=== PATIENT | female | born 1950 | race Caucasian/White ===

== ENCOUNTER 2017-02-25 19:18 | Inpatient (IN) | payer MEDICARE, OTHER ==
--- NOTE | ~2017-02-25 | TOC ---
Unit #: [id number] #: [id number] Patient: PIPE MC [id number] [address] [place], [place] [address] [id number] I MR#: [id number] NAME: PIPE MC ROOM: 316 Age: 67 Sex: F Admission Date: 02/25/2017 : 1950 Attending Physician: Evan Zimmer M.D. Primary Care Physician: Stefan Brambila M.D. TRANSFER OF CARE SUMMARY DISCHARGE DIAGNOSES 1. Irqlc-dx-jhxdsmx hypoxic and hypercapnic respiratory failure. 2. Dbwlj-vk-vbhmcjw diastolic heart failure. 3. Immobility. 4. Oral thrush. 5. Toxic-metabolic encephalopathy. 6. Chronic pain, managed on narcotics. 7. Hypertension. 8. Type 2 diabetes. HOSPITAL COURSE The patient is a 67-year-old female who presents to [facility] emergency department with some acute kidney injury and altered mental status. She was initially thought to possibly have a urinary tract infection however cultures were negative. Ultimately the patient required transfer to the ICU because of worsening respiratory failure. It was felt that this was brought about due to the patient's acute kidney injury and narcotic use. The patient was managed on BiPAP for her respiratory failure and with time and resolution of her acute kidney injury her mental status did return to baseline. Once the patient was no longer requiring BiPAP, she was initially to be transferred from the ICU but she demonstrated significant difficulty tolerating a diet. Even the smallest sips of water would result in significant nausea and vomiting. As a result, the patient was maintained on IV fluids. Over the course of the hospitalization it was felt that the patient was also suffering from cibdj-is-rqyqroj diastolic heart failure and aggressive diuresis was needed. At this time the patient has diuresed 5 L in the past 48 hours and is having much less trouble breathing. Regarding the patient's pain, she is on significantly smaller doses of pain medication than she was as an outpatient. She had been taking MS Contin 60 mg p.o. b.i.d. and 15 mg of instant release morphine as needed daily but has maintained herself only on 15 mg of instant release morphine t.i.d. as needed here. At this time the patient's respiratory status continues to improve. She is to be evaluated by PT and OT for possible rehab placement. Unit #: [id number] #: [id number] Patient: PIPE MC Dictated by... Barrie Albright/temo TD: 03/08/2017 15:06 JOB #: [id number] TRANSFER OF CARE SUMMARY Page 1 of 1 X Evan Zimmer MD X TRANSFER OF CARE SUMMARY
--- NOTE | ~2017-02-25 | CR72 ---
[facility] A Service of [facility] & [facility] RADIOLOGY TEXT RESULTS PATIENT: PIPE MC LOCATION: [address] : [birth year] UNIT #: [id number] AGE: [address]: Evan Zimmer MD SEX: F ORDER DR: [id number] [facility] [address] [facility]. [place], [place] [address] [id number] I MR#: [id number] Acc #: [id number] NAME: PIPE MC : 1950 SEX: F STUDY DATE/TIME: 03/03/2017 4:31 UNIT: [facility] ROOM: [facility] STUDY DESCRIPTION: CR Chest Single View Portable Attending Physician: Evan Zimmer M.D. Ordering Physician: Alvaro Cordova Primary Care Physician: Stefan Brambila M.D. MEDICAL IMAGING REPORT This report is preliminary unless electronic signature is present EXAM Portable chest INDICATIONS Shortness of air and fluid overload. PROCEDURE Frontal view chest. COMPARISON 02/25/2017 FINDINGS Stable cardiomegaly. No new dense consolidation. No pneumothorax. Central vascular congestion slightly increased. IMPRESSION Slightly increased central pulmonary vascular congestion. Otherwise stable. Dictated by... Eduard Buckley M.D. THIS IS AN ELECTRONICALLY VERIFIED REPORT Eduard Buckley M.D. at 03/03/2017 10:14 PM MELQUIADES/yuly TD: 03/03/2017 06:27 JOB #: [id number] MEDICAL IMAGING REPORT Page 1 of 1 COPY
--- NOTE | ~2017-02-25 | US139 ---
[facility] A Service of [facility] & [facility] / [facility] RADIOLOGY TEXT RESULTS PATIENT: PIPE MC LOCATION: [facility] 316[address]01 : [birth year] UNIT #: [id number] AGE: [address]: Evan Zimmer MD SEX: F ORDER DR: [id number] [facility] [address] [facility] [place] [facility]. [place], [place] [address] [id number] I MR#: [id number] Acc #: [id number] NAME: PIPE MC : 1950 SEX: F STUDY DATE/TIME: 03/06/2017 17:46 UNIT: [facility] ROOM: [facility] STUDY DESCRIPTION: US UE Veins Complete Jason Stdy Attending Physician: Evan Zimmer M.D. Ordering Physician: Bigg Cordova M.D. Primary Care Physician: Stefan Brambila M.D. MEDICAL IMAGING REPORT This report is preliminary unless electronic signature is present EXAM Bilateral upper extremity duplex venous ultrasound INDICATIONS Bilateral upper extremity edema over the last day. TECHNIQUE Escamilla-scale color Doppler and spectral Doppler waveform imaging of the deep venous structures of the upper extremities was performed. No comparisons. FINDINGS All the evaluated deep venous structures are patent and compressible (where possible) and there is no evidence of DVT. A right upper extremity PICC line is noted. IMPRESSION No evidence of DVT Dictated by... Chase Sawant M.D. THIS IS AN ELECTRONICALLY VERIFIED REPORT Chase Sawant M.D. at 03/09/2017 8:01 AM EVA/mino TD: 03/07/2017 01:27 JOB #: [id number] MEDICAL IMAGING REPORT Page 1 of 1 COPY
--- NOTE | ~2017-02-25 | CR72 ---
[facility] A Service of [facility] & [facility] RADIOLOGY TEXT RESULTS PATIENT: PIPE MC LOCATION: [facility] : 52 UNIT #: [id number] AGE: [address]: Alexy Boswell MD SEX: F ORDER DR: [id number] [facility] [address] [place], [place] [address] [id number] E MR#: [id number] Acc #: [id number] NAME: PIPE MC : 1950 SEX: F STUDY DATE/TIME: 02/25/2017 19:17 UNIT: [facility] ROOM: STUDY DESCRIPTION: CR Chest Single View Portable Attending Physician: Alexy Boswell M.D. Ordering Physician: Alexy Boswell M.D. Primary Care Physician: Stefan Brambila M.D. MEDICAL IMAGING REPORT This report is preliminary unless electronic signature is present EXAM Portable chest. DATE OF EXAM 02/25/2017 HISTORY Shortness of air and hypertension, and weakness for 1 month. FINDINGS Moderate cardiac enlargement. Pulmonary vascularity is normal. No airspace infiltrates or effusions. IMPRESSION 1. Cardiac enlargement. 2. Lungs are clear. Dictated by... Danilo Farfan M.D. THIS IS AN ELECTRONICALLY VERIFIED REPORT Danilo Farfan M.D. at 02/25/2017 11:28 PM DUANE/palmer TD: 02/25/2017 20:44 JOB #: [id number] MEDICAL IMAGING REPORT Page 1 of 1 COPY
--- NOTE | ~2017-02-25 | OR ---
Unit #: [id number] #: [id number] Patient: PIPE MC [id number] [address] [place], [place] [address] [id number] I MR#: [id number] NAME: PIPE MC ROOM: [facility] Date of Procedure: 03/03/2017 Admission Date: 02/25/2017 Surgeon: Kenneth Hernandez M.D. : 1950 Attending Physician: Evan Zimmer M.D. Primary Care Physician: Stefan Brambila M.D. OPERATIVE REPORT PRIMARY CARE PHYSICIAN Stefan Brambila M.D. PREOPERATIVE DIAGNOSES Nausea and vomiting. The patient is currently admitted in ICU because of hypoxemic respiratory failure. PROCEDURE PERFORMED Upper gastrointestinal endoscopy. POSTOPERATIVE DIAGNOSES 1. Distal erosive grade 3 esophagitis. 2. Distal esophageal mucosal ring, the latter was felt to be nonobstructing. 3. Rest of the examination up to third part of duodenum was normal. RECOMMENDATIONS 1. Pantoprazole 40 mg p.o. b.i.d. 2. Resume diet as tolerated. SEDATION USED Procedural sedation. DESCRIPTION OF PROCEDURE Following detailed explanation of potential risks and complications of an upper endoscopy, namely perforation, bleeding, and complication related to sedation, the patient was laid in the left lateral decubitus position. The procedure was done in intensive care unit at the patient's bedside. Lubricated tip of the Olympus video upper endoscope was passed through the bite block into the proximal esophagus under direct vision. The entire esophageal mucosa was examined and the patient was noted to have distal confluent erosive esophagitis along with early stricture. The latter was felt to be wide open, not requiring dilation. The scope was then advanced into the gastric cavity and the latter was insufflated. Mucosa of the fundus, body, and antrum was examined and appeared unremarkable. Pylorus was intubated with visualization of the normal duodenal bulb and second and third part of the duodenum. Upon withdrawal and retroflexion, the incisura, cardia, and greater curve were examined and no additional findings noted. The scope was withdrawn into the distal esophagus. The entire esophageal mucosa was examined all the way up to pharynx and no additional findings noted. The patient tolerated the procedure without any postprocedural complication. Unit #: [id number] #: [id number] Patient: PIPE MC Dictated by... Barrie Hand/dalila TD: 03/08/2017 03:35 JOB #: [id number] CC: Barrie Mar M.D. OPERATIVE REPORT Page 1 of 1 X Kenneth Hernandez MD X PROCEDURE OPERATIVE NOTE
--- NOTE | ~2017-02-25 | DS ---
Unit #: [id number] #: [id number] Patient: PIPE MC [id number] [address] [place], [place] [address] [id number] I MR#: [id number] NAME: PIPE MC ROOM: 316 Age: 67 Sex: F Admission Date: 02/25/2017 : 1950 Discharge Date: 03/11/2017 Attending Physician: Yaw Lovelace M.D. Primary Care Physician: Stefan Brambila M.D. DISCHARGE SUMMARY DISCHARGE DIAGNOSES 1. Acute on chronic hypoxic and hypercarbic respiratory failure. 2. Acute on chronic diastolic heart failure. 3. Immobility. 4. Oral thrush. 5. Toxic metabolic encephalopathy. 6. Type 2 diabetes mellitus. 7. Chronic pain. 8. Hypertension. HOSPITAL COURSE The patient is a 67-year-old female who presented to the emergency room with acute kidney injury and altered mental status. Please see the H and P and transfer of care note dictated on March 08 for further details. Since then, the patient has been waiting for placement. The patient was started on Magic Mouthwash for oral thrush, and that showed improvement. The patient's antibiotics were discontinued. The patient was transitioned to oral diuretics. The patient was weaned off of BiPAP, and she was on nasal cannula for oxygenation. The patient showed improvement with diuretics and bronchodilators. The patient is cleared for discharge by the consultants. CONSULTANTS Pulmonary with Dr. Cordova. PHYSICAL EXAMINATION GENERAL: The patient is lying in the bed, not in acute distress. VITALS: Temperature is 98.6, respirations 18, blood pressure 127/53, satting 96% on 2 liters of oxygen, pulse of 65. HEENT: Head is atraumatic, normocephalic. Pupils are equal, round and reactive to light and accommodation. Oral thrush has resolved. LUNGS: Decreased air entry at the bases and clear. No rhonchi. No wheezing. HEART: Regular rate and rhythm. Positive for murmur. ABDOMEN: Soft. Positive bowel sounds. Positive for obesity. EXTREMITIES: Positive for venous stasis. NEUROLOGIC: Alert, awake, oriented. DIAGNOSTIC STUDIES LAB DATA: Glucose 238, BUN 7, creatinine 0.7, sodium 138, potassium 3.7, chloride 91, bicarb 39, calcium 8.8. WBC 8.2, hemoglobin 10.8, hematocrit 32.5, platelets 219. Unit #: [id number] #: [id number] Patient: PIPE MC IMAGING: Chest x-ray shows significant improvement in reticular interstitial and alveolar disease changes compared to 03/06/2017 and 03/04/2017, thought to represent improving edema in the proper clinical context. Faint reticular interstitial infiltrates or edema remains within the bilateral lower lobes and the left midlung. Stable cardiomegaly. DISCHARGE MEDICATIONS 1. Prozac 40 mg daily. 2. Metformin 500 mg b.i.d. 3. Loperamide p.r.n. 4. Desenex topically b.i.d. 5. Benadryl for itching. 6. Norvasc 5 mg b.i.d. 7. Lopressor 25 mg b.i.d. 8. Colace p.r.n. 9. Lasix 40 mg p.o. daily. 10. Lipitor 20 mg at bedtime. 11. Clonidine p.r.n. systolic blood pressure more than 160. 12. Lisinopril 20 mg b.i.d. 13. Sliding scale low dose. 14. Morphine sulfate 15 mg for breakthrough pain. 15. Protonix 40 mg b.i.d. DISPOSITION/CONDITION The patient is (1) at rehab, probably (2) [place]. The patient is transferred to rehab in stable condition. FOLLOWUP Follow up with pulmonary in one month for evaluation of obstructive sleep apnea. Dictated by.Barrie Kuhn TD: 03/11/2017 14:19 JOB #: [id number] DISCHARGE SUMMARY Page 1 of 1 X X DISCHARGE SUMMARY
--- NOTE | ~2017-02-25 | EE ---
Unit #: [id number] #: [id number] Patient: PIPE MC [id number] [address] [address] [id number] I MR#: [id number] NAME: PIPE MC : 1950 SEX: F STUDY DATE/TIME: 02/26/2017 UNIT: [facility] ROOM: [facility] STUDY DESCRIPTION: EEG Attending Physician: Evan Zimmer M.D. Referring Physician: Evan Zimmer M.D. Primary Care Physician: Stefan Brambila M.D. NEURODIAGNOSTICS REPORT EXAM EEG REASON FOR THE STUDY 1. Likely toxic and metabolic encephalopathy. 2. Acute kidney injury. 3. UTI. 4. Hyperglycemia. 5. Confusional state, rule out epilepsy for the present problem or nonconvulsive seizures or status. EEG DESCRIPTION This is an inpatient, portable, digitally recorded multi-montage adult EEG with leads placed according to the International 10-20 System. Hyperventilation and photic stimulation was not done. This EEG shows diffuse background slowing. Most of the activity was 4 to 5 Hz. There was significant muscle and beta artifact. The patient never got good alpha activity. Nothing suggesting clearcut interictal discharges though some subtle C3/P3 slowing, which could be sleep related, was seen. The patient did have some spindles later on but nothing suggesting clearcut interictal discharges, clinical events or seizures. Reactivity was seen to some degree and some spindles were seen later on. IMPRESSION This is an abnormal EEG showing diffuse slowing which is indicative of encephalopathy. Nothing suggesting seizure or status. Clinical correlation is recommended. An EEG like this does not rule out epilepsy. Dictated by... Barrie Vincent/oscar TD: 02/27/2017 11:07 JOB #: [id number] Unit #: [id number] #: [id number] Patient: PIPE MC NEURODIAGNOSTICS REPORT Page 1 of 1 X Oneyda Hernandez MD NEURODIAGNOSTICS REPORT
--- NOTE | ~2017-02-25 | HP ---
Unit #: [id number] #: [id number] Patient: PIPE MC [id number] [address] [place], [place] [address] [id number] I MR#: [id number] NAME: PIPE MC ROOM: [facility] Age: 67 Sex: F Admission Date: 02/25/2017 : 1950 Attending Physician: Liberty Velasquez M.D. Primary Care Physician: Stefan Brambila M.D. HISTORY AND PHYSICAL ADDENDUM I did obtain an ABG: pH 7.28, pCO2 54, pO2 97, and O2 saturation 96.3% on 2 liters of oxygen. Because the patient is so tenuous, I will, instead, admit her to the intensive care unit. I will ask for BiPAP as well and repeat the ABG. The gas is a mixed metabolic/respiratory acidosis. Pulmonary will also be consulted. If not improving, will need to have nephrology consultation. Patient still is having significant myoclonic twitching. I suspect this is a combination from her hypercapnia, uremia, and her hypoglycemia. I will, however, give her some Keppra and obtain an EEG in the morning. The Keppra will be discontinued if the EEG looks okay. Critical care time spent evaluating this patient was 45 minutes. Dictated by Barrie Quintana/adelaida TD: 02/26/2017 05:07 JOB #: [id number] HISTORY AND PHYSICAL Page 1 of 1 X Liberty Velasquez MD HISTORY AND PHYSICAL
--- NOTE | ~2017-02-25 | US84 ---
[id number] [facility] [address] [facility]. [place], [place] [address] [id number] I MR#: [id number] Acc #: [id number] NAME: PIPE MC : 1950 SEX: F STUDY DATE/TIME: 03/04/2017 9:59 UNIT: [facility] ROOM: [facility] STUDY DESCRIPTION: US LE Veins Complete Jason Stdy Attending Physician: Evan Zimmer M.D. Ordering Physician: Liberty Velasquez M.D. Primary Care Physician: Stefan Brambila M.D. MEDICAL IMAGING REPORT This report is preliminary unless electronic signature is present EXAM Bilateral lower extremity venous duplex, 03/04/2017 HISTORY Bilateral lower extremity edema for 1 week, lymphedema in the left lower extremity, shortness of breath for 1 week, congestive heart failure and hypertension. Evaluate for pulmonary embolus. TECHNIQUE Venous ultrasound examination of both lower extremities was performed using grayscale, spectral Doppler and color flow Doppler imaging. FINDINGS The examination is negative. There is no evidence of deep venous thrombus from the groin to the lower calf bilaterally. Visualized greater saphenous veins are also patent. IMPRESSION Negative examination. No evidence of bilateral lower extremity deep venous thrombosis. Dictated by... Mario Escobedo M.D. THIS IS AN ELECTRONICALLY VERIFIED REPORT Mario Escobedo M.D. at 03/05/2017 8:07 AM SUSAN/karina TD: 03/04/2017 11:50 JOB #: [id number] MEDICAL IMAGING REPORT Page 1 of 1 COPY
--- NOTE | ~2017-02-25 | CO ---
Unit #: [id number] #: [id number] Patient: PIPE PIERSON [id number] [address] [place], [place] [address] [id number] I MR#: [id number] NAME: PIPE PIERSON ROOM: 316 Age: 67 Sex: F Admission Date: 02/25/2017 : 1950 Attending Physician: Evan Zimmer M.D. Primary Care Physician: Stefan Brambila M.D. Consultation Date: 03/02/2017 CONSULTATION REPORT PRIMARY CARE PHYSICIAN Stefan Brambila M.D. REASON FOR CONSULTATION Repeated nausea and vomiting. The patient is admitted with hypoxemic respiratory failure in the intensive care unit. HISTORY OF PRESENT ILLNESS Ms. Pierson is a 67-year-old white female. The patient is quite obese and is admitted with hypoxemic respiratory failure. She was found to have altered mental status in the form of increasing somnolence with myoclonic twitching and hypoxemia. At the same time, she was found to have acute kidney injury on admission. Since after admission, she has improved in terms of her oxygenation and renal function and mental status, but has not been able to accept anything by p.o. and has vomited repeatedly. PAST MEDICAL HISTORY Significant for history of hypertension; type 2 diabetes; peripheral neuropathy; hyperlipidemia; chronic back pain with history of spinal fusions in the past, she is on long-term MS Contin; chronic left leg lymphedema; depression; and history of urinary infections. PAST SURGICAL HISTORY Included back surgery, section, laparoscopic cholecystectomy, BTL, and T and A. MEDICATIONS At home included MS Contin, Lasix, Glucophage, lisinopril, ibuprofen, Imodium, hydralazine, Benadryl, Norvasc, potassium, Lantus insulin, and metoprolol. ALLERGIES She is allergic to sulfonamides, carbonic anhydrase inhibitors, thiazides, Lipitor, and Stelazine. FAMILY HISTORY Significant for coronary artery disease, diabetes, hypertension, and bone cancer. SOCIAL HISTORY The patient lives with her granddaughter and her . She never smoked. Does not drink alcohol. REVIEW OF SYSTEMS Unit #: [id number] #: [id number] Patient: PIPE PIERSON Detailed review of organ systems does not reveal any recent weight loss. No history of fever, chills, or rigors. No history of headache, seizures, chest pain, or syncope. No history of cough, expectoration, or hemoptysis. No history of dysuria, hematuria, or pyuria. No history of focal seizures or extremity weakness. No history of overt GI bleed. PHYSICAL EXAMINATION GENERAL: She appears alert and oriented. Apparently, she was quite confused when she came in. VITAL SIGNS: Indicate a temperature of 97.9, her pulse is 70 per minute and regular, respiratory rate is 24, and blood pressure is 135/59. She has morbid obesity and weighs 310 pounds. HEENT: She has mild pallor. There being no icterus, lymphadenopathy, and left leg lymphedema. CARDIOVASCULAR: Normal heart sounds. No murmurs on auscultation. LUNGS: Reveal normal breath sounds with diminished air entry bilaterally. ABDOMEN: Soft, obese, and nontender. Liver and spleen are not palpable. Bowel sounds are normal. DIAGNOSTIC STUDIES LABORATORY RESULTS: Shows a hemoglobin of 11.7, white count is 12.2, and platelets are 209. INR is 1.1. Serum chemistry shows a BUN and creatinine on admission of 88 and 3.2, this has now normalized and she does have an albumin of 3.0. LFTs including bilirubin, transaminases, and alkaline phosphatase are all normal. BNP is 210. TSH is 1.51 and normal. CLINICAL IMPRESSION The patient has repeated nausea and vomiting. There is a reason for her to be vomiting in view of multiple medical issues on presentation, but since these have resolved, repeated nausea and vomiting might indicate an intrinsic mucosal disease of the gastric outflow tract such as an ulcer disease; therefore, an upper endoscopy is warranted and will be scheduled for tomorrow. Incidentally, the patient says she wants to eat and is quite hungry; therefore, let her have regular diet as tolerated today. Thank you very much for asking me to this pleasant woman. I appreciate the consult. Dictated byBarrie Avalos/dalila TD: 03/08/2017 14:12 JOB #: [id number] CONSULTATION REPORT Page 1 of 1 X Kenneth Hernandez MD CONSULTATION REPORT
--- NOTE | ~2017-02-25 | A ---
[facility] Nutrition Therapy DATE: 03/02/17 Patient: PIPE MC Physician: LIBRADO Address: [address] [facility] Room/Bed: [address], Zip: [place] [address] Admit Date: 02/25/17 Date of : [birth year] Height: 5 2 Weight: 306 139 NUTRITIONAL ASSESSMENT: REASON: ICU LOS 67 yo female admitted for AMS, lethargy, RAMSES d/t dehydration PMH: H/o CHF, HTN, DM, chronic pain, HLD, cholecystectomy Anthropometrics: Ht: 62" Wt: 139 kg BMI: 56.0 Labs: Gluc 166 Accuchecks 150-170 Meds: Protonix, zofran, lopressor, lipitor, loperamide, NaCl I/O & Bowel function: 3564/915, last BM 03/01 Skin Integrity: Red/ purple bruising to BUE/ forearms Redness/ rash to breast and abdominal folds Redness to groin Edema: Chronic lymph edema left leg Diet: Clear liquids Assessment: Chart reviewed, events noted. Pt has been NPO or on clear liquid diet since admission. Pt was briefly placed on a consistent carbohydrate diet, which was changed to clear liquids that same day. Mild pancreatitis reported by RN. RD spoke with the pt and family members at bedside. Pt had poor intake for about 3 days [employer]. Pt reports that she has been tolerating clear liquids on and off, sometimes she can keep them down, and other times she vomits. RD explained the importance of a low fat diet once the pt's diet advances. Pt and family voiced understanding. Pt is agreeable to Ensure clear with meals while she is on a clear liquid diet. Dx: Inadequate oral intake RT Dx, decreased appetite AEB pt vomiting with intake of clear liquids, poor intake reported. Intervention: 1. Clear liquid diet 2. Advance as tolerated to CC/ low fat diet 3. Ensure clear TID Monitoring, Evaluation and Goals: 1. Oral intake; tolerate >50-75% meals and supplements [facility] Nutrition Therapy DATE: 03/02/17 Patient: PIPE MC Physician: LIBRADO Address: [address] [facility] Room/Bed: [address], Zip: [place] [address] Admit Date: 02/25/17 Date of : [birth year] Height: 5 2 Weight: 306 139 2. Labs; WNL: glucose 3. Weight; prevent unintentional weight loss, promote gradual weight loss once medically feasible 4. Skin; prevent skin breakdown Recommendations: 1. Continue clear liquid diet as tolerated. 2. Ensure clear (mixed maldonado) TID for supplemental nutrition while the pt remains on a clear liquid diet. 3. Once medically feasible, advance the pt to a low fat/ consistent carbohydrate diet as tolerated. Pt is at moderate nutritional risk. RD will follow hospital course. Respectfully, NIKITA JARAMILLO RD, LD [employer] [facility] cc: client file
--- NOTE | ~2017-02-25 | CR72 ---
[facility] A Service of [facility] RADIOLOGY TEXT RESULTS PATIENT: PIPE MC LOCATION: [place] [address] : [birth year] UNIT #: [id number] AGE: [address]: Evan Zimmer MD SEX: F ORDER DR: [id number] [facility] [address] [facility] [place], [place] [address] [id number] I MR#: [id number] #: [id number] NAME: PIPE MC : 1950 SEX: F STUDY DATE/TIME: 03/04/2017 1:57 UNIT: [facility] ROOM: [facility] STUDY DESCRIPTION: CR Chest Single View Portable Attending Physician: Evan Zimmer M.D. Ordering Physician: Liberty Velasquez M.D. Primary Care Physician: Stefan Brambila M.D. MEDICAL IMAGING REPORT This report is preliminary unless electronic signature is present EXAM Portable chest INDICATIONS Chest pain and shortness of air tonight. PROCEDURE Frontal view chest. COMPARISON 03/03/2017 FINDINGS Stable cardiomegaly and central pulmonary vascular prominence. No new dense consolidation, pleural fluid or pneumothorax. IMPRESSION Stable chest. Dictated by... Eduard Buckley M.D. THIS IS AN ELECTRONICALLY VERIFIED REPORT Eduard Buckley M.D. at 03/04/2017 10:24 PM EED/psc TD: 03/04/2017 04:05 JOB #: [id number] MEDICAL IMAGING REPORT Page 1 of 1 COPY
--- NOTE | ~2017-02-25 | CO ---
Unit #: [id number] #: [id number] Patient: PIPE PIERSON [id number] [address] [place], [place] [address] [id number] I MR#: [id number] NAME: IPPE PIERSON [facility]OM: [facility] Age: 67 Sex: F Admission Date: 02/25/2017 : 1950 Attending Physician: Evan Zimmer M.D. Primary Care Physician: Stefan Brambila M.D. CONSULTATION REPORT Ms. Pierson is a 67-year-old female who was admitted with altered mental status. She has a history of hypertension, diabetes mellitus, chronic pain, history of urinary tract infections. History is obtained from the medical record. Apparently over the last three days she had been taking very little orally and had decreased urine output. She became confused with a low grade fever. Over the past 24 hours she started twitching. She was brought to the emergency room. Vital signs were recorded as O2 sat of 99% on 3 L. Blood pressure was 149/47, respiratory rate was 14, pulse was 79, temperature was 98.1. She received 1 L of normal saline bolus, 1 g of Rocephin, 1000 mg of Keppra and an amp of D50. She was noted to have a blood sugar of 54. She was note to have some myoclonus. An arterial blood gas was done which revealed a pH of 2.77, pCO2 of 53.9, pO2 of 97 on 2 L. She has subsequently been placed on BiPAP 12/6 with a rate of 18, pH of 7.26, pCO2 of 54, pO2 of 114. Other lab work - creatinine was 3.2 on admission, 2.5 now. Glucose currently is 216, sodium 132. CO2 was recorded at 25. Chest x-ray showed cardiomegaly, no acute infiltrate. White blood cell count was 12,400, hematocrit 35.1, platelet count normal. Urinalysis did reveal white blood cells. Culture is pending. PAST MEDICAL HISTORY 1. History of acute kidney injury and urinary tract infection in July 2016. 2. History of hypertension. 3. Adult onset diabetes mellitus with peripheral neuropathy. 4. Hyperlipidemia. 5. Chronic back pain, status post fusion, followed with Dr. Agarwal in pain clinic, on MS-Contin. 6. History of chronic left leg lymphedema. 7. History of depression. SURGERY 1. Bilateral tubal ligation. 2. Tonsillectomy/adenoidectomy. 3. Lap jean paul. 4. . 5. Multiple back surgeries. ALLERGIES Stelazine, Dyazide, sulfa, carbonic and hydrase inhibitors, thiazides, Lipitor, hydrochlorothiazide, triamterene. HOME MEDICATIONS 1. MS-Contin. Unit #: [id number] #: [id number] Patient: PIPE PIERSON 2. Lasix. 3. Glucophage. 4. Lisinopril. 5. Ibuprofen. 6. Imodium. 7. Hydralazine. 8. Benadryl. 9. Norvasc. 10. Potassium. 11. Lantus. 12. Metoprolol. FAMILY HISTORY Hypertension, diabetes, coronary artery disease, bone cancer. SOCIAL HISTORY Lives with and granddaughter. Lifelong nonsmoker. No alcohol or illicit drugs. REVIEW OF SYSTEMS Not possible. Patient currently on BiPAP, getting an EEG. PHYSICAL EXAMINATION VITAL SIGNS: Blood pressure is 126/51, pulse is 89, respiratory rate is 23, temperature 98.1. HEENT: Normocephalic, atraumatic. Pupils equal, round, reactive. Sclerae nonicteric. Nasal passages, oral cavity not visualized due to full face mask. NECK: Supple. Trachea midline. Morbidly obese female. LUNGS: Reveal some scattered rhonchi and mild wheeze. CARDIAC: Regular rate and rhythm. Could not appreciate murmur, rub or gallop. ABDOMEN: Protuberant, nontender. Bowel sounds present. EXTREMITIES: Lymphedema on the left. Cobblestoning. Trace edema right. NEUROLOGICAL: Does follow commands, having myoclonic jerks. DIAGNOSTIC STUDIES LABORATORY: Laboratory studies are as noted. IMPRESSION 1. Altered mental status. 2. Myoclonus. 3. Acute respiratory acidosis. 4. Acute kidney injury. 5. Morbid obesity with probable obstructive sleep apnea. 6. Chronic pain, on narcotics. 7. Possible urinary tract infection. RECOMMENDATIONS Wound hold all pain medications. Will support on BiPAP, adjust to maintain better ventilation and followup arterial blood gases. She does have some wheezing today so will initiate bronchodilator therapy. Hydration for acute kidney injury. Hold lisinopril and nonsteroidals. Agree with treating for possible urinary tract infection. Await culture results. Further results pending this. Addendum - CT scan of the head showed nothing acute. Unit #: [id number] #: [id number] Patient: PIPE PIERSON Dictated by... Barrie Mccoy/oscar TD: 02/27/2017 06:58 JOB #: [id number] CONSULTATION REPORT Page 1 of 1 X Bigg Cordova MD X CONSULTATION REPORT
--- NOTE | ~2017-02-25 | CT4 ---
[facility] A Service of [facility] RADIOLOGY TEXT RESULTS PATIENT: PIPE MC LOCATION: [address] : [birth year] UNIT #: [id number] AGE: [address]: Evan Zimmer MD SEX: F ORDER DR: [id number] [facility] [address] [facility]. [place], [place] [address] [id number] I MR#: [id number] Acc #: [id number] NAME: PIPE MC : 1950 SEX: F STUDY DATE/TIME: 03/01/2017 19:48 UNIT: [facility] ROOM: [facility] STUDY DESCRIPTION: CT Abd and Pelv Wo Cont Attending Physician: Evan Zimmer M.D. Ordering Physician: Evan Zimmer M.D. Primary Care Physician: Stefan Brambila M.D. MEDICAL IMAGING REPORT This report is preliminary unless electronic signature is present EXAM CT abdomen and pelvis without contrast, 03/01/2017 INDICATIONS Persistent nausea, vomiting, and diarrhea for the past [address] of the abdomen and pelvis. This CT exam was performed with one or more of the following radiation dose reduction techniques: automatic exposure control, adjustment of mA and/or kV according to patient size, and iterative reconstruction. COMPARISON None. FINDINGS ABDOMEN WITHOUT CONTRAST: There are patchy opacities in both lung bases. The liver, spleen, kidneys, and adrenal glands show no definite acute abnormality. There is some haziness around the pancreas with obscuration of the fat planes around the pancreatic head. Previous cholecystectomy. No organized peripancreatic collection. Bowel loops nondilated. Appendix normal. 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 PELVIS WITHOUT CONTRAST: Mccracken catheter in the bladder. There is a small amount of fluid in the pelvis. No aggressive-appearing bone lesion. IMPRESSION 1. Haziness around the pancreas with obscuration of fat planes, that is most in keeping with mild acute pancreatitis. Correlate with [facility] A Service of [facility] RADIOLOGY TEXT RESULTS PATIENT: PIPE MC LOCATION: [facility] CICCU3-24 : [birth year] UNIT #: [id number] AGE: [address]: Evan Zimmer MD SEX: F ORDER DR: laboratory values. No evidence for organized peripancreatic fluid collection. 2. Patchy opacities in the lung bases could represent atelectasis or infiltrate. Dictated by... Eduard Buckley M.D. THIS IS AN ELECTRONICALLY VERIFIED REPORT Eduard Buckley M.D. at 03/02/2017 9:56 PM MELQUIADES/annia TD: 03/02/2017 03:45 JOB #: [id number] MEDICAL IMAGING REPORT Page 1 of 1 COPY
--- NOTE | ~2017-02-25 | HP ---
Unit #: [id number] #: [id number] Patient: PIPE MC [id number] [address] [place], [place] [address] [id number] I MR#: [id number] NAME: PIPE MC ROOM: 49[address] Age: 67 Sex: F Admission Date: 02/25/2017 : 1950 Attending Physician: Liberty Velasquez M.D. Primary Care Physician: Stefan Brambila M.D. HISTORY AND PHYSICAL CHIEF COMPLAINT Acute kidney injury, altered mental status, urinary tract infection, hypoglycemia. HISTORY This 67-year-old female with hypertension, AODM, chronic pain, is admitted for hypoglycemia, altered mental status, possible UTI, acute kidney injury. History is obtained from family. Over the past three days patient has been taking in very little p.o., with decreased urinary output. Became increasing confused with a low-grade temperature. Over the past 24 hours has been "twitching." She was brought to this emergency department tonight with stable vital signs. She is extremely somnolent on exam and has evidence of some myoclonic twitching. Her Accu-Chek as I am seeing her is 54. Labs are notable for acute kidney injury, possible UTI. Patient is also requiring oxygen. She presented similarly to the hospital 07/2016 for UTI and acute kidney injury. PAST MEDICAL HISTORY 1. Admission 07/2016 for acute kidney injury and urinary tract infection. 2. Hypertension. 3. AODM with peripheral neuropathy. 4. Hyperlipidemia. 5. Chronic back pain status post fusion, [place], [place] followed by Pain Management on MS Contin. 6. Chronic left leg lymphedema. 7. Depression. 8. BTL. 9. T and A. 10. Laparoscopic cholecystectomy. 11. C section. 12. Previous back surgeries. ALLERGIES Stelazine, Dyazide, sulfa, carbonic anhydrase inhibitors, thiazides, Lipitor, hydrochlorothiazide, triamterene. HOME MEDICATIONS 1. MS Contin 60 mg b.i.d. 2. Lasix 40 mg plus 20 mg 3. Glucophage 500 mg b.i.d. 4. Lisinopril 20 mg daily 5. Ibuprofen 200 mg two tablets q.6 hours as needed 6. Imodium p.r.n. Unit #: [id number] #: [id number] Patient: PIPE MC 7. Hydralazine 25 mg daily 8. Benadryl 25 mg q.6 hours as needed 9. Norvasc 5 mg b.i.d. 10. Potassium 10 mEq daily 11. Lantus 35 units subcu at bedtime 12. Metoprolol 12.5 mg b.i.d. FAMILY HISTORY Hypertension, diabetes mellitus, CAD and bone cancer. SOCIAL HISTORY The patient lives with her and granddaughter. Lifelong nonsmoker. Does not drink alcohol. REVIEW OF SYSTEMS Impossible to obtain as patient is confused and lethargic. PHYSICAL EXAMINATION GENERAL: Confused/lethargic, morbidly obese 67-year-old female who does have intermittent myoclonic twitching. VITAL SIGNS: Temperature 98.1, pulse 79, respirations 14, blood pressure 149/47, O2 saturation 99% on 3 L of oxygen. HEENT EXAMINATION: Eyes PERRLA. PHARYNX: Very poor dentition. Dry mucosal membranes. NECK: Supple without adenopathy or thyromegaly. CHEST: Diminished breath sounds but clear. CARDIAC: Normal S1, S2 without murmur. ABDOMEN: Bowel sounds are present. No hepatosplenomegaly, tenderness or masses. EXTREMITIES: Notable for left leg edema (which apparently is chronic) and erythema. NEUROLOGIC EXAM: Patient is somnolent but arousable. She is oriented to person. She has intermittent myoclonic twitching of her extremities. She is able to move all her extremities and follow commands. DIAGNOSTIC STUDIES ADMISSION LABORATORY: Hematocrit 35.4, white blood count 12.4, normal platelet count. Normal coags. SMA-12: BUN 88, creatinine 3.2 (up from BUN 10, creatinine 0.8 07/2016), sodium 134, alk phos 104. Lactic acid normal. Cardiac markers negative. URINALYSIS: 1+ leukocyte esterase with 10-25 white cells, although moderate squamous epithelial cells making this a somewhat poor specimen, 5-10 red cells noted. IMAGING 1. Chest x-ray: Cardiomegaly. 2. Head CT: No acute disease. Mild small vessel ischemic disease and atrophy noted. CARDIOLOGY: EKG - Normal sinus rhythm, rate 75. ASSESSMENT 1. Acute kidney injury secondary to dehydration and medications. 2. Adult-onset diabetes mellitus with hypoglycemia, current Accu-Chek is Unit #: [id number] #: [id number] Patient: PIPE MC. 3. Possible urinary tract infection. 4. Altered mental status likely related to toxic metabolic encephalopathy, which is multifactorial including medications, acute kidney injury, hypoglycemia. 5. Hypertension. 6. Chronic left leg edema. 7. Chronic low back pain on MS Contin. 8. Hyperlipidemia. 9. Myoclonic twitching secondary to hypoglycemia, uremia. However, will check an ABG to rule out hypercapnia. 10. Morbid obesity. PLANS 1. Aggressive IV fluids, will give dextrose with IV fluids. Patient did receive 1 amp of D50. 2. Obtain frequent Accu-Cheks and obtain a hemoglobin A1C along with thyroid function tests. 3. Empiric Rocephin pending cultures. 4. Obtain renal ultrasound. 5. Check venous Dopplers of the legs and start DVT prophylaxis with low-dose Lovenox. 6. Repeat labs in a few hours. 7. Discontinue ibuprofen and TOM inhibitor along with potassium. 8. Will hold MS Contin, metformin, insulin, Benadryl. 9. Further plans and consultants depending on above. 10. Obtain ABG. Dictated by Liberty Velasquez M.D. AML/psc TD: 02/26/2017 00:32 JOB #: [id number] CC: 2u HISTORY AND PHYSICAL Page 1 of 1 X Liberty Velasquez MD X HISTORY AND PHYSICAL
--- NOTE | ~2017-02-25 | US77 ---
[facility] A Service of [facility] RADIOLOGY TEXT RESULTS PATIENT: PIPE MC LOCATION: [facility] CICCU3-24 : [birth year] UNIT #: [id number] AGE: [address]: Evan Zimmer MD SEX: F ORDER DR: [id number] [facility] [address] [facility] [place] [facility]. [place], [place] [address] [id number] I MR#: [id number] #: [id number] NAME: PIPE MC : 1950 SEX: F STUDY DATE/TIME: 02/26/2017 19:24 [facility] STUDY DESCRIPTION: US Kidney Bilateral Complete Attending Physician: Evan Zimmer M.D. Ordering Physician: Liberty Velasquez M.D. Primary Care Physician: Stefan Brambila M.D. MEDICAL IMAGING REPORT This report is preliminary unless electronic signature is present EXAM Renal ultrasound bilateral, 02/26/2017 INDICATIONS Hypertension, diabetes, creatinine 2.5, BUN 83, GFR 19, clinical concern for obstruction. Acute renal injury. TECHNIQUE Sonographic imaging of the kidneys was performed bilaterally. Comparison study 08/26/2016. FINDINGS There is a limited sonographic window for evaluation of the kidneys. These were the best images possible according to the technologist. To the extent visualized, there is no hydronephrosis of either kidney or shadowing stone. Significant portions of both kidneys were obscured from view, however. The right kidney measures about 12 cm long-axis, and the left about 10.8 cm. The bladder is abnormal. There is a hyperechoic, polypoid appearing mass-like area of echogenicity extending anteriorly into the bladder lumen from the posterior bladder wall. Findings are suspicious for an underlying mass. Dimensions on ultrasound 2.5 x 2.0 cm. Correlate with any history of hematuria or risk factors for malignancy of the bladder. It is possible this could represent debris within the bladder. Direct visualization would be complementary along with urologic referral for further assessment. IMPRESSION 1. Limited sonographic window. No hydronephrosis or shadowing stone on either side. 2. Findings suspicious for a polypoid mass protruding into the bladder lumen from the posterior bladder wall measuring up to 2.5 x 2.0 cm. This could alternatively represent debris within the bladder. Direct visualization would be complementary. Correlation [facility] A Service of [facility] RADIOLOGY TEXT RESULTS PATIENT: PIPE MC LOCATION: [facility]3 CICCU3-24 : [birth year] UNIT #: [id number] AGE: [address]: Evan Zimmer MD SEX: F ORDER DR: with any history of hematuria recommended. Dictated by... Bhavesh Castaneda M.D. THIS IS AN ELECTRONICALLY VERIFIED REPORT Bhavesh Castaneda M.D. at 02/27/2017 5:26 AM ROSEMARIE/ade TD: 02/27/2017 04:20 JOB #: [id number] MEDICAL IMAGING REPORT Page 1 of 1 COPY
--- NOTE | ~2017-02-25 | BMI ---
[facility] Nutrition Therapy DATE: 02/27/17 Patient: PIPE MC Physician: LIBRADO Address: [address] Room/Bed: [address], Zip: [place] [address] Admit Date: 02/25/17 Date of : [birth year] Height: 5 2 Weight: 306 139 HIGH BMI NOTE: ANTHROPOMETRICS: HT: 62" WT: 139 KG BMI: 56.0 INTERVENTION: 1. CONSISTENT CARBOHYDRATE DIET RECOMMENDATIONS: 1. ADD HEART HEALTHY DIET IN ORDER TO PROMOTE GRADUAL WEIGHT LOSS. Respectfully, NIKITA JARAMILLO RD, LD [facility] cc: client file
--- NOTE | ~2017-02-25 | CT16 ---
[facility] A Service of [facility] RADIOLOGY TEXT RESULTS PATIENT: PIPE MC LOCATION: [address] : 51 UNIT #: [id number] AGE: [address]: Evan Zimmer MD SEX: F ORDER DR: [id number] [facility] [address] [place], [place] [address] [id number] I MR#: [id number] Acc #: [id number] NAME: PIPE MC : 1950 SEX: F STUDY DATE/TIME: 03/04/2017 13:04 UNIT: [facility] ROOM: [facility] STUDY DESCRIPTION: CT Angio Chest for PE Attending Physician: Evan Zimmer M.D. Ordering Physician: Liberty Velasquez M.D. Primary Care Physician: Stefan Brambila M.D. MEDICAL IMAGING REPORT This report is preliminary unless electronic signature is present EXAM CT angiography of chest for PE. DATE OF EXAM 03/04/2017 HISTORY Admitted 02/25/2017 hypoglycemia, confusion, acute kidney insufficiency, hypertension, diabetes, shortness of breast since February 25. TECHNIQUE CT chest performed for CT pulmonary angiography with intravenous administration of 80 mL Isovue-370. Three-dimensional reconstructions performed through the pulmonary arteries. NOTE: This CT exam was performed with one or more of the following radiation dose reduction techniques: automatic exposure control, adjustment of mA and/or kV according to patient size, and iterative reconstruction. COMPARISON No prior CTs of chest for comparison. FINDINGS Thyroid unremarkable. No axillary adenopathy. There are mildly enlarged mediastinal nodes. 1.1 cm short-axis subcarinal node. Azygo-esophageal recess node measuring about 1.6 cm in short axis. The heart is moderately enlarged. Mitral annular calcifications. Small left and moderate right pleural effusions. Small-volume ascites adjacent to the liver. No focal suspicious hepatic parenchymal abnormality. The patient is status post cholecystectomy. No biliary ductal dilatation. Spleen unremarkable. The visualized pancreas shows a decrease in the peripancreatic haziness seen on prior CT abdomen and pelvis 03/01/2017. There continues to be some haziness in the region of the pancreatic head. Appearance may reflect improving, but not yet resolved mild pancreatitis. Please correlate with STS. [facility] A Service of [facility] RADIOLOGY TEXT RESULTS PATIENT: PIPE MC LOCATION: CICCU2 CICCU2-02 : 51 UNIT #: [id number] AGE: [address]: Evan Zimmer MD SEX: F ORDER DR: laboratory data and clinical status. No peripancreatic fluid collection. The adrenal glands and upper renal poles are unremarkable. Fluid seen throughout the esophagus suggesting gastroesophageal reflux which may place the patient at increased risk for aspiration. There is marked gastric distension with fluid and air. Given the degree of distension, gastric decompression may be warranted. I see no gastric obstructing process. Visualized transverse colon unremarkable. Pulmonary parenchyma shows linear interstitial prominence bilaterally. Patchy airspace disease bilaterally more pronounced in the bilateral vyv-km-lieew lung zones with areas of confluent airspace disease in the bilateral lower lobes. Where this examination overlaps the CT abdomen and pelvis 03/19/2017, the extent of airspace disease is increased. Given the bilateral and roughly symmetric nature of the process, pleural effusions, interstitial and airspace components, severe pulmonary edema is favored. Certainly multifocal pneumonia could be considered. No suspicious nodule. The study is nondiagnostic for evaluation of potential pulmonary emboli due to timing of contrast bolus relative to image acquisition and extensive respiratory motion artifact. No pulmonary emboli seen in the main pulmonary artery, right or left main pulmonary arteries. Beyond these levels, technical limitations of the study render it nondiagnostic. If there is ongoing concern for pulmonary thromboembolic disease, repeat CT pulmonary angiogram would be recommended if the patient is a candidate for additional iodinated contrast material. The possibility of pulmonary emboli at the lobar and more distal levels is not excluded on basis of this examination. Ventilation-perfusion radionuclide lung scan may not yield diagnostic result due to the extensive interstitial airspace and pleural space findings. The main pulmonary artery is prominent at about 3.9 cm in diameter suggesting some degree of pulmonary arterial hypertension. The ascending aorta measures approximately 3.9 cm in diameter. Given there is extensive motion artifact. The great vessel origins are patent with flow demonstrated in the proximal vertebral and common carotid arteries. The descending thoracic aorta is normal in caliber. Celiac axis grossly patent. Visualized abdominal aorta is poorly opacified. It appears normal in overall caliber with prominent atherosclerotic arterial calcifications. The bony structures show no acute abnormality. There are degenerative changes in the spine. IMPRESSION 1. Due to timing of contrast bolus relative to image acquisition and extensive respiratory motion artifact, the study is nondiagnostic for evaluation of potential pulmonary emboli beyond the level of the main pulmonary arteries. No main, right or left main pulmonary artery emboli are suggested. Pulmonary arterial emboli at lobar and more distal levels could be obscured by a combination of limitations described above. If there is ongoing concern for pulmonary thromboembolic disease, and if the patient is a candidate for additional iodinated contrast material, repeat CT pulmonary angiogram [facility] A Service of [facility] RADIOLOGY TEXT RESULTS PATIENT: PIPE MC LOCATION: [address] : 51 UNIT #: [id number] AGE: [address]: Evan Zimmer MD SEX: F ORDER DR: could be considered. Given findings in the pleural space and lung parenchyma, ventilation-perfusion radionuclide lung scan is unlikely to be fully diagnostic. 2. Prominence of the main pulmonary artery measuring 3.9 cm in diameter, likely reflecting some degree of underlying pulmonary arterial hypertension. 3. Borderline aneurysmal dilatation of ascending aorta measuring 3.9 cm in diameter. There is no indication of dissection. The visualized aortic branch vessels appear grossly patent. 4. Moderate cardiac enlargement. Mitral annular calcifications noted. 5. Appearance of the lungs is abnormal. Extensive linear interstitial densities in the bilateral lungs. Extensive patchy airspace disease bilaterally and relatively symmetrically more pronounced in bilateral udh-oe-svjrl lung zones with areas of confluent airspace disease bilateral lower lung zones. Associated small left and moderate right pleural effusions. Overall appearance favors severe pulmonary edema with interstitial airspace and pleural space components. Multifocal bilateral pneumonia could be considered in the appropriate clinical setting. 6. There is marked gastric distension with air and fluid. No gastric obstructing process is clearly seen. Correlate clinically. Given the degree of distension, gastric decompression may be warranted. 7. Fluid seen throughout the esophagus. This suggests gastroesophageal reflux and may place the patient at significantly increased risk for aspiration. 8. Improved, but not yet resolved haziness and ill-defined tissue planes in the region of the pancreas. Findings suggest improving pancreatitis. There is no localized peripancreatic fluid collection. 9. Small volume ascites. 10. Status post cholecystectomy. 11. Mediastinal adenopathy as described above likely reactive in nature and related to pulmonary/pleural processes. Attention at followup recommended. Dictated by... Kike Lau M.D. THIS IS AN ELECTRONICALLY VERIFIED REPORT Kike Lau M.D. at 03/05/2017 5:36 PM KAYA/palmer TD: 03/04/2017 16:30 JOB #: [id number] MEDICAL IMAGING REPORT Page 1 of 1 COPY
--- NOTE | ~2017-02-25 | CT71 ---
[facility] A Service of [facility] [place] RADIOLOGY TEXT RESULTS PATIENT: PIPE MC LOCATION: CICCU3 CICCU3-24 : 51 UNIT #: [id number] AGE: [address]: Evan Zimmer MD SEX: F ORDER DR: [id number] [place] [id number] [facility]. [place], [place] [address] [id number] MR#: [id number] Acc #: [id number] NAME: PIPE MC : 1950 SEX: F STUDY DATE/TIME: 02/25/2017 21:59 UNIT: [facility] ROOM: STUDY DESCRIPTION: CT Head Wo Contrast Attending Physician: Alexy Boswell M.D. Ordering Physician: Alexy Boswell M.D. Primary Care Physician: Stefan Brambila M.D. MEDICAL IMAGING REPORT This report is preliminary unless electronic signature is present EXAM CT head without IV contrast COMPARISON August 25, 2016 INDICATIONS 67-year-old female with confusion, disorientation, lethargy and weakness for [address] exam was performed with one or more of the following radiation dose reduction techniques: Automatic exposure control, adjustment of mA and/or kV according to patient size, and iterative reconstruction. Cerumen is present in the right external ear canal. Mastoid air cells, middle ears and visualized paranasal sinuses are well aerated. Detailed evaluation on this exam is limited by patient motion. There are calcifications of the cavernous internal carotid arteries. There is diffuse osteopenia. No acute fractures or suspicious osseous lesions. There is mild cerebral volume loss. No abnormal extraaxial fluid collection or mass effect. No acute intracranial hemorrhage. There is stable periventricular white matter hypoattenuation within the frontal and parietal lobes consistent with chronic small vessel ischemic change. There is stable hypoattenuation in the region of the left lentiform nucleus, also consistent with chronic small vessel ischemic change. No convincing evidence of acute ischemia. IMPRESSION 1. Motion limited exam. No acute intracranial abnormality is seen. 2. Mild cerebral volume loss with mild chronic small vessel ischemic changes. [facility] A Service of [facility] [place] RADIOLOGY TEXT RESULTS PATIENT: PIPE MC LOCATION: [facility] CICCU3-24 : 51 UNIT #: [id number] AGE: [address]: Evan Zimmer MD SEX: F ORDER DR: Dictated by... Earl Lay M.D. THIS IS AN ELECTRONICALLY VERIFIED REPORT Earl Lay M.D. at 03/01/2017 10:02 PM JOHN/ade TD: 02/25/2017 23:44 JOB #: [id number] MEDICAL IMAGING REPORT Page 1 of 1 COPY
--- NOTE | ~2017-02-25 | US84 ---
[id number] [facility] [address] [place], [place] [address] [id number] I MR#: [id number] Acc #: [id number] NAME: PIPE MC : 1950 SEX: F STUDY DATE/TIME: 02/26/2017 19:39 UNIT: [facility] ROOM: [facility] STUDY DESCRIPTION: US LE Veins Complete Jason Stdy Attending Physician: Evan Zimmer M.D. Ordering Physician: Liberty Velasquez M.D. Primary Care Physician: Stefan Brambila M.D. MEDICAL IMAGING REPORT This report is preliminary unless electronic signature is present EXAM Bilateral lower extremity venous ultrasound HISTORY Shortness of air for 2 days. Left leg neuropathy. TECHNIQUE Venous ultrasound examination of both lower extremities was performed using grayscale, spectral Doppler and color flow Doppler imaging. FINDINGS The examination is negative. There is no evidence of deep venous thrombus from the groin to the lower calf bilaterally. Visualized greater saphenous veins are also patent. IMPRESSION Negative examination. No evidence of lower extremity deep venous thrombosis. Dictated by... Danilo Farfan M.D. THIS IS AN ELECTRONICALLY VERIFIED REPORT Danilo Farfan M.D. at 02/27/2017 2:57 PM DFL/psc TD: 02/27/2017 03:06 JOB #: [id number] MEDICAL IMAGING REPORT Page 1 of 1 COPY
--- NOTE | ~2017-02-25 | CR72 ---
[facility] A Service of [facility] RADIOLOGY TEXT RESULTS PATIENT: PIPE MC LOCATION: [facility] 316-01 : 51 UNIT #: [id number] AGE: [address]: HERBERTH LOVELACE MD SEX: F ORDER DR: [id number] [facility] [address] [place], [place] [address] [id number] I MR#: [id number] Acc #: [id number] NAME: PIPE MC : 1950 SEX: F STUDY DATE/TIME: 03/09/2017 6:26 [facility] ROOM: [facility] STUDY DESCRIPTION: CR Chest Single View Portable Attending Physician: Herberth Lovelace M.D. Ordering Physician: Bigg Cordova M.D. Primary Care Physician: Stefan Brambila M.D. MEDICAL IMAGING REPORT This report is preliminary unless electronic signature is present EXAM AP portable chest, 03/09/2017 at 06:26 HISTORY 67-year-old female shortness of breath, respiratory failure and fluid overload. Symptoms began 02/25/2017. Confusion and urinary tract infection. Additional history of hypertension and diabetes. COMPARISON AP portable chest 03/06/2017. CT chest PE protocol 03/04/2017. FINDINGS Low volume inspiration. Study is mildly attenuated by body habitus. The interstitial thickening seen in both lungs, left greater than right, on previous studies from 03/06/2017 and 03/04/2017 appears improved with faint residual reticular infiltrate in the left midlung and within the lung bases. No new dense consolidations are seen. No definite pleural effusion. Stable cardiac enlargement. Central pulmonary vasculature appears within normal limits. IMPRESSION 1. Significant improvement in reticular interstitial and alveolar disease changes compared to 03/06/2017 and 03/04/2017, thought to represent improving edema in the proper clinical context. Faint reticular interstitial infiltrates or edema remains within the bilateral lower lobes and the left midlung. 2. Stable cardiomegaly. Dictated by... Sheryl Kidd M.D. THIS IS AN ELECTRONICALLY VERIFIED REPORT Sheryl Kidd M.D. at 03/10/2017 8:33 AM [facility] A Service of [facility] RADIOLOGY TEXT RESULTS PATIENT: PIPE MC LOCATION: [facility] 316-01 : 51 UNIT #: [id number] AGE: [address]: HERBERTH LOVELACE MD SEX: F ORDER DR: JENNIFER/karina TD: 03/09/2017 10:10 JOB #: [id number] MEDICAL IMAGING REPORT Page 1 of 1 COPY
--- NOTE | ~2017-02-25 | CR72 ---
[facility] A Service of [facility] & [facility] RADIOLOGY TEXT RESULTS PATIENT: IPPE MC LOCATION: [facility] 316-01 : 51 UNIT #: [id number] AGE: [address]: Evan Zimmer MD SEX: F ORDER DR: [id number] [facility] [address] [place], [place] [address] [id number] I MR#: [id number] Acc #: [id number] NAME: PIPE MC : 1950 SEX: F STUDY DATE/TIME: 03/06/2017 4:29 UNIT: [facility] ROOM: [facility] STUDY DESCRIPTION: CR Chest Single View Portable Attending Physician: Evan Zimmer M.D. Ordering Physician: Bigg Cordova M.D. Primary Care Physician: Stefan Brambila M.D. MEDICAL IMAGING REPORT This report is preliminary unless electronic signature is present EXAM Portable chest INDICATION Shortness of air and chest pain today. PROCEDURE Frontal view chest COMPARISON 03/04/2017 FINDINGS Stable cardiomegaly. No new dense consolidation. No pneumothorax. IMPRESSION Stable. Dictated by... Eduard Buckley M.D. THIS IS AN ELECTRONICALLY VERIFIED REPORT Eduard Buckley M.D. at 03/09/2017 7:30 AM Geovanna TD: 03/06/2017 08:02 JOB #: [id number] MEDICAL IMAGING REPORT Page 1 of 1 COPY
--- NOTE | ~2017-02-25 | EKG ---
PATIENT: PIPE MC UNIT #: [id number] Ventricular Rate: 79 BPM Atrial Rate: 79 BPM P-R Interval: 138 ms QRS Duration: 92 ms Q-T Interval: 428 ms QTC Calculation(Bezet): 490 ms P [place]: 45 degrees Calculated R [place]: 17 degrees Calculated T [place]ati: -171 degrees Diagnosis Line: Normal sinus rhythm with sinus arrhythmia Diagnosis Line: Poor R wave progression questionable lead position Diagnosis Line: or body habitus Diagnosis Line: T wave abnormality, consider inferolateral Diagnosis Line: ischemia Diagnosis Line: Abnormal ECG Diagnosis Line: When compared with ECG of 25-FEB-2017 19:07, Diagnosis Line: T wave inversion now evident in Lateral leads Diagnosis Line: Confirmed by YUKI ROGERS MD ([id number]) on 03/04/2017 Diagnosis Line: 10:33:34 PM INTERPRETING MD: SUE RAMIREZ
--- NOTE | ~2017-02-25 | FU ---
[facility] Nutrition Therapy DATE: 03/06/17 Patient: PIPE MC Physician: LIBRADO Address: [address] Room/Bed: [address], Zip: [place] [id number] Admit Date: 02/25/17 Date of : [birth year] Height: 5 2 Weight: 324 147 NUTRITION MONITORING/FOLLOW-UP: Reason: PT SEEN FOR FOLLOW-UP DX: RAMSES, UTI, TME HYPOGLYCEMIA Anthropometrics: 5'2", WT: 324# (147 KG), BMI: 59.3 -ADMIT WEIGHT: 305# Labs: GLU: 174, CA+:8.3, A1c: 7.2 (02/26/17), K+:3.4 Meds: FUROSEMIDE, PROTONIX, ZOFRAN, LIPITOR, NACL I&O's: 2819/2342, 2 BMs NOTED Skin: CHRONIC LYMPHEDEMA NOTED (L) LEG; ABD/BUE GENERALIZED EDEMA; BILATERAL HANDS 2+ EDEMA; (R) PEDAL 2+ EDEMA; ABD FOLDS FUNGAL PROCESS Assessment: CHART REVIEWED AND EVENTS NOTED. PT SEEN FOR FOLLOW-UP. PT REPORTS APPETITE SLOWLY IMPROVING, NOTES N/V SLOWLY SUBSIDING. PT REPORTS TOLERATING LIQUID DIET TRAY THIS AM (NOTE: PT ATE 100% BREAKFAST TRAY). PT STATES SHE WANTS TO CONTINUE TO DRINK ENSURE CLEAR TID. THIS RD ENCOURAGED SLOW GRADUAL PO INTAKE, PT AGREED. PT REPORTED NO DIET QUESTIONS AT THIS TIME. RD TO CONTINUE TO FOLLOW. Dx: INADEQUATE ORAL INTAKE R/T DECREASED APPETITE AEB PT VOMITING OF CLEAR LIQUID, POOR INTAKE PER REPORT.-IN PROGRESS. Intervention: 1. FULL LIQUID DIET 2. ENSURE CLEAR TID Monitoring, Evaluation and Goals: GOALS NOT MET 1. PO INTAKE; PROVIDE AND CONSUME ADEQUATE NUTRITION W/NO C/O N/V/D (PO>50%) 2. WEIGHTS; PROMOTE GRADUAL WEIGHT LOSS 3. LABS; WNL: GLU 4. GI; PROMOTE REGULAR GI FUNCTION MONITOR: -PO INTAKE/APPETITE -DIET ADVANCEMENT -SUPPLEMENT INTAKE -WEIGHTS Recommendations: 1. CONTINUE TO ENCOURAGE ADEQUATE PO AND SUPPLEMENT INTAKE [facility] Nutrition Therapy DATE: 03/06/17 Patient: PIPE MC Physician: LIBRADO Address: [address] Room/Bed: [facility] [facility], Zip: [place] [address] Admit Date: 02/25/17 Date of : [birth year] Height: 5 2 Weight: 324 147 2. ONCE PT ABLE TO TOLERATE LIQUID DIET, ADVANCE DIET TOLERATED TO CC 2' PMH, HIGH BMI NOTED RD WILL F/U PER PROTOCOL PT IS MILD/MODERATELY COMPROMISED Respectfully, JONATHAN SWANN MS, RD, LD [facility] cc: client file
--- NOTE | ~2017-02-25 | EKG ---
PATIENT: PIPE MC UNIT #: [id number] Ventricular Rate: 77 BPM Atrial Rate: 77 BPM P-R Interval: 162 ms QRS Duration: 88 ms Q-T Interval: 396 ms QTC Calculation(Bezet): 448 ms P Virgin: 55 degrees Calculated R Virgin: 15 degrees Calculated T Virgin: -7 degrees Diagnosis Line: Normal sinus rhythm Diagnosis Line: Nonspecific ST abnormality Diagnosis Line: Otherwise normal ECG Baseline wander Diagnosis Line: When compared with ECG of 25-AUG-2016 11:01, Diagnosis Line: T wave inversion less evident in Inferior leads Diagnosis Line: Confirmed by GERSON CARDENAS MD ([id number]) on 02/25/2017 Diagnosis Line: 9:25:37 PM INTERPRETING MD: THERESA RAMIREZ
[~2017-02-25 19:18] MED LIST: AMLODIPINE BESYL5 MG PO; ATORVASTATIN CA20 MG PO; FLUOXETINE HCL20 M1 PO; GLIPIZIDE10 MG/BOTT PO; GLIPIZIDE5 MG/BOTT1 PO; GLUCOPHAGE500 MG PO; IBUPROFEN PO; KCL PO; LANTUS100 U/ML SUBQ; LANTUS100 UNITS/ SUBQ; LASIX PO; LIPITOR PO; LISINOPRIL10 MG PO; METFORMIN PO; METOPROLOL TAR25 MG PO; MORPHINE SULFAT60 M1 PO
[2017-02-25 19:35] LABS: BASOPHIL% 0.3 % (0-2.5); EOSINOPHIL% 0.4 % (0.0-7.0); HEMATOCRIT 35.4 % (35.0-45.0); HEMOGLOBIN 11.5 gm/dL (12.0-16.0); LYMPHOCYTE# 0.7 X10e3 (1.0-3.5); LYMPHOCYTE% 5.8 % (17.0-45.0); MEAN CORPUSCULAR HEMOGLOBIN 31.2 PG (28-34); MEAN CORPUSCULAR HGB CONC 32.5 g/dL (30-36); MEAN PLATELET VOLUME 10.4 FL (6.5-11.5); MONOCYTE# 0.7 X10e3 (0-1.0); MONOCYTE% 5.3 % (3.0-12.0); NEUTROPHIL# 10.9 X10e3 (1.5-7.1); NEUTROPHIL% 88.2 % (40-75); PLATELET COUNT 210 X10e3 (140-420); RED BLOOD COUNT 3.69 X10e (3.90-5.30); RED CELL DISTRIBUTION WIDTH 13.3 % (11.0-15.5); WHITE BLOOD COUNT 12.4 X10e3 (4.0-10.5)
[2017-02-25 19:42] LABS: DIFF IND NO
[2017-02-25 19:46] LABS: POC - CKMB 4.7 ng/mL (0.0-7.9); POC - TROPONIN <0.05 ng/mL (<=0.05)
[2017-02-25 19:50] LABS: INR 1.1; PARTIAL THROMBOPLASTIN TIME 25.7 SECONDS (23.5-31.3); PROTHROMBIN TIME (PATIENT) 11.1 SECONDS (9.6-11.5)
[2017-02-25 19:53] LABS: ALBUMIN SERUM 3.3 g/dL (3.5-5.0); BILIRUBIN, DIRECT 0.1 mg/dL (0.0-0.2); BILIRUBIN,INDIRECT 0.3 mg/dL (0.0-0.9); BILIRUBIN,TOTAL 0.4 mg/dL (0.2-2.0); BUN/CREATININE RATIO 27.5; CREATININE SERUM 3.2 mg/dL (0.6-1.4); GLOM FILT RATE Estimated 14.4 mL/min (>60); MAGNESIUM 1.7 mg/dL (1.6-3.0); POTASSIUM 5.1 mmol/L (3.5-5.1); PROTEIN TOTAL SERUM 6.7 g/dL (6.0-8.3)
[2017-02-25 21:21] LABS: URINE SOURCE CLEAN CATCH
[2017-02-25 22:32] LABS: URINE APPEARANCE CLOUDY; URINE BILIRUBIN NEG (NEG); URINE BLOOD NEG (NEG); URINE COLOR YELLOW; URINE GLUCOSE NEG (NEG); URINE KETONE NEG (NEG); URINE LEUKOCYTE ESTERASE 1+ (NEG); URINE NITRATE NEG (NEG); URINE PROTEIN NEG (NEG); URINE SPECIFIC GRAVITY 1.016 (1.003-1.035); URINE UROBILINOGEN 0.2 MG/DL (NEG)
[2017-02-25 22:37] LABS: CULTURE INDICATED? YES; URINE BACTERIA AUWI NEG (NEGATIVE); URINE SQUAMOUS EPITHELIAL CELL MOD /[HPF]
[2017-02-25 23:24] LABS: POC - CKMB 3.6 ng/mL (0.0-7.9); POC - TROPONIN <0.05 ng/mL (<=0.05)
[2017-02-26 00:21] LABS: ARTERIAL BLD GAS O2 SATURATION 96.3 % (90.0-100.0); ARTERIAL BLOOD GAS CARBOXY HB 1.1 %sat (0.0-9.0); ARTERIAL BLOOD GAS HCO3 25.1 mmol/L; ARTERIAL BLOOD GAS MET HB 0.8 %sat (0.0-2.0); ARTERIAL BLOOD GAS PO2 97.2 mmHg (80.0-100); ARTERIAL BLOOD GAS pH 7.277 (7.350-7.450)
[2017-02-26 00:23] LABS: ARTERIAL BLOOD GAS ALLEN TEST NORMAL; ARTERIAL BLOOD GAS ART SITE LEFT RADIAL; ARTERIAL BLOOD GAS DELIVERY NASAL CANNULA; ARTERIAL BLOOD GAS PCO2 53.9 mmHg (35.0-45.0); ARTERIAL DRAW? YES
[2017-02-26] MEDS ORDERED: LISINOPRIL20 MG PO (04:26)
[2017-02-26] MEDS ORDERED: LANTUS100 U/ML SUBQ (04:26)
[2017-02-26] MEDS ORDERED: METFORMIN HCL500 M1 PO (04:27)
[2017-02-26] MEDS ORDERED: METOPROLOL TART25 MG PO (04:28)
[2017-02-26] MEDS ORDERED: MORPHINE SULFAT60 MG PO (04:29)
[2017-02-26] MEDS ORDERED: MORPHINE SULFAT15 MG PO (04:30)
[2017-02-26] MEDS ORDERED: POTASSIUM CHLO10 ME1 PO (04:31)
[2017-02-26] MEDS ORDERED: AMLODIPINE BESYL5 MG PO (04:31)
[2017-02-26] MEDS ORDERED: LIPITOR20 MG PO (04:32)
[2017-02-26] MEDS ORDERED: BENADRYL25 M1 PO (04:32)
[2017-02-26] MEDS ORDERED: SARAFEM20 MG PO (04:33)
[2017-02-26] MEDS ORDERED: LASIX20 MG PO (04:33)
[2017-02-26 04:34] LABS: BASOPHIL# 0.1 X10e3 (0-0.3); BASOPHIL% 0.7 % (0-2.5); EOSINOPHIL# 0.1 X10e3 (0-0.7); EOSINOPHIL% 1.6 % (0.0-7.0); HEMATOCRIT 31.1 % (35.0-45.0); HEMOGLOBIN 10.1 gm/dL (12.0-16.0); LYMPHOCYTE# 1.1 X10e3 (1.0-3.5); LYMPHOCYTE% 12.4 % (17.0-45.0); MEAN CELL VOLUME 96.9 FL (83-96); MEAN CORPUSCULAR HEMOGLOBIN 31.6 PG (28-34); MEAN CORPUSCULAR HGB CONC 32.6 g/dL (30-36); MEAN PLATELET VOLUME 9.8 FL (6.5-11.5); MONOCYTE# 0.8 X10e3 (0-1.0); NEUTROPHIL# 6.6 X10e3 (1.5-7.1); NEUTROPHIL% 76.3 % (40-75); PLATELET COUNT 180 X10e3 (140-420); RED BLOOD COUNT 3.21 X10e (3.90-5.30); RED CELL DISTRIBUTION WIDTH 13.3 % (11.0-15.5); WHITE BLOOD COUNT 8.6 X10e3 (4.0-10.5)
[2017-02-26] MEDS ORDERED: HYDRALAZINE HCL25 MG PO (04:34)
[2017-02-26] MEDS ORDERED: GLUCOTROL PO (04:34)
[2017-02-26] MEDS ORDERED: ADVIL200 M1 PO (04:35)
[2017-02-26] MEDS ORDERED: IMODIUM2 MG PO (04:36)
[2017-02-26 04:38] LABS: DIFF IND NO
[2017-02-26 04:47] LABS: ARTERIAL BLD GAS O2 SATURATION 97.7 % (90.0-100.0); ARTERIAL BLOOD GAS CARBOXY HB 1.1 %sat (0.0-9.0); ARTERIAL BLOOD GAS HCO3 24.4 mmol/L; ARTERIAL BLOOD GAS MET HB 1.2 %sat (0.0-2.0); ARTERIAL BLOOD GAS PCO2 48.7 mmHg (35.0-45.0); ARTERIAL BLOOD GAS pH 7.308 (7.350-7.450)
[2017-02-26 04:49] LABS: ARTERIAL BLOOD GAS ALLEN TEST NORMAL; ARTERIAL BLOOD GAS ART SITE LEFT RADIAL; ARTERIAL DRAW? YES
[2017-02-26 04:59] LABS: BUN/CREATININE RATIO 33.2; CALCIUM SERUM 8.3 mg/dL (8.4-10.2); CREATININE SERUM 2.5 mg/dL (0.6-1.4); GLOM FILT RATE Estimated 19.4 mL/min (>60); POTASSIUM 4.4 mmol/L (3.5-5.1)
[2017-02-26 05:18] LABS: %MB 2.9 % (0.0-4.0); MB 7.3 ng/ml
[2017-02-26 06:35] LABS: THYROID STIMULATING HORMONE 1.51 uIU/ml (0.34-5.60)
[2017-02-26 06:44] LABS: FREE THYROXIN (T4) 1.04 ng/dL (0.58-1.64)
[2017-02-26 08:15] LABS: ARTERIAL BLD GAS O2 SATURATION 97.2 % (90.0-100.0); ARTERIAL BLOOD GAS CARBOXY HB 0.8 %sat (0.0-9.0); ARTERIAL BLOOD GAS HCO3 24.7 mmol/L; ARTERIAL BLOOD GAS MET HB 0.7 %sat (0.0-2.0); ARTERIAL BLOOD GAS pH 7.262 (7.350-7.450)
[2017-02-26 08:16] LABS: ARTERIAL BLOOD GAS ALLEN TEST Y; ARTERIAL BLOOD GAS ART SITE RIGHT RADIAL; ARTERIAL BLOOD GAS DELIVERY BIPAP; ARTERIAL BLOOD GAS PCO2 54.9 mmHg (35.0-45.0); ARTERIAL DRAW? YES
[2017-02-26 11:54] LABS: ARTERIAL BLD GAS O2 SATURATION 95.7 % (90.0-100.0); ARTERIAL BLOOD GAS HCO3 25.4 mmol/L; ARTERIAL BLOOD GAS MET HB 0.6 %sat (0.0-2.0); ARTERIAL BLOOD GAS PO2 92.1 mmHg (80.0-100); ARTERIAL BLOOD GAS pH 7.251 (7.350-7.450)
[2017-02-26 11:59] LABS: ARTERIAL BLOOD GAS PCO2 57.9 mmHg (35.0-45.0)
[2017-02-26 12:00] LABS: ARTERIAL BLOOD GAS ALLEN TEST NORMAL; ARTERIAL BLOOD GAS ART SITE RIGHT RADIAL; ARTERIAL BLOOD GAS DELIVERY BIPAP 16/6; ARTERIAL DRAW? YES
[2017-02-26 16:05] LABS: ARTERIAL BLD GAS O2 SATURATION 97.3 % (90.0-100.0); ARTERIAL BLOOD GAS CARBOXY HB 0.9 %sat (0.0-9.0); ARTERIAL BLOOD GAS HCO3 24.6 mmol/L; ARTERIAL BLOOD GAS MET HB 0.6 %sat (0.0-2.0); ARTERIAL BLOOD GAS PCO2 45.8 mmHg (35.0-45.0); ARTERIAL BLOOD GAS pH 7.338 (7.350-7.450)
[2017-02-26 16:06] LABS: ARTERIAL BLOOD GAS ALLEN TEST NORMAL; ARTERIAL BLOOD GAS ART SITE RIGHT RADIAL; ARTERIAL BLOOD GAS DELIVERY BIPAP 20/6; ARTERIAL DRAW? YES
[2017-02-27 06:50] LABS: BASOPHIL% 0.3 % (0-2.5); EOSINOPHIL% 0.1 % (0.0-7.0); HEMATOCRIT 35.6 % (35.0-45.0); HEMOGLOBIN 11.7 gm/dL (12.0-16.0); LYMPHOCYTE# 0.5 X10e3 (1.0-3.5); MEAN CELL VOLUME 95.8 FL (83-96); MEAN CORPUSCULAR HEMOGLOBIN 31.5 PG (28-34); MEAN CORPUSCULAR HGB CONC 32.9 g/dL (30-36); MEAN PLATELET VOLUME 9.6 FL (6.5-11.5); MONOCYTE# 0.5 X10e3 (0-1.0); MONOCYTE% 4.8 % (3.0-12.0); NEUTROPHIL# 9.3 X10e3 (1.5-7.1); NEUTROPHIL% 89.8 % (40-75); PLATELET COUNT 209 X10e3 (140-420); RED BLOOD COUNT 3.71 X10e (3.90-5.30); RED CELL DISTRIBUTION WIDTH 13.3 % (11.0-15.5); WHITE BLOOD COUNT 10.3 X10e3 (4.0-10.5)
[2017-02-27 07:17] LABS: DIFF IND NO
[2017-02-27 07:27] LABS: BILIRUBIN,TOTAL 0.6 mg/dL (0.2-2.0); CALCIUM SERUM 8.6 mg/dL (8.4-10.2); GLOM FILT RATE Estimated 58.7 mL/min (>60); MAGNESIUM 1.6 mg/dL (1.6-3.0); POTASSIUM 4.3 mmol/L (3.5-5.1); PROTEIN TOTAL SERUM 6.3 g/dL (6.0-8.3)
[2017-02-27 07:27] LABS: ARTERIAL BLD GAS O2 SATURATION 97.2 % (90.0-100.0); ARTERIAL BLOOD GAS CARBOXY HB 0.8 %sat (0.0-9.0); ARTERIAL BLOOD GAS MET HB 1.1 %sat (0.0-2.0); ARTERIAL BLOOD GAS PCO2 46.8 mmHg (35.0-45.0); ARTERIAL BLOOD GAS pH 7.335 (7.350-7.450)
[2017-02-27 07:28] LABS: ARTERIAL BLOOD GAS ALLEN TEST NORMAL; ARTERIAL BLOOD GAS ART SITE LEFT RADIAL; ARTERIAL BLOOD GAS DELIVERY BIPAP; ARTERIAL DRAW? YES
[2017-02-27 11:37] LABS: ARTERIAL BLD GAS O2 SATURATION 96.5 % (90.0-100.0); ARTERIAL BLOOD GAS CARBOXY HB 0.7 %sat (0.0-9.0); ARTERIAL BLOOD GAS HCO3 25.2 mmol/L; ARTERIAL BLOOD GAS MET HB 0.7 %sat (0.0-2.0); ARTERIAL BLOOD GAS PCO2 43.7 mmHg (35.0-45.0); ARTERIAL BLOOD GAS PO2 89.1 mmHg (80.0-100); ARTERIAL BLOOD GAS pH 7.369 (7.350-7.450)
[2017-02-27 11:38] LABS: ARTERIAL BLOOD GAS ALLEN TEST NORMAL; ARTERIAL BLOOD GAS ART SITE LEFT RADIAL; ARTERIAL BLOOD GAS DELIVERY NASAL CANNULA; ARTERIAL DRAW? YES
[2017-02-28 05:50] LABS: BASOPHIL# 0.1 X10e3 (0-0.3); BASOPHIL% 0.6 % (0-2.5); EOSINOPHIL% 0.1 % (0.0-7.0); HEMOGLOBIN 11.8 gm/dL (12.0-16.0); LYMPHOCYTE# 0.4 X10e3 (1.0-3.5); LYMPHOCYTE% 3.2 % (17.0-45.0); MEAN CELL VOLUME 95.7 FL (83-96); MEAN CORPUSCULAR HEMOGLOBIN 31.4 PG (28-34); MEAN CORPUSCULAR HGB CONC 32.8 g/dL (30-36); MEAN PLATELET VOLUME 9.5 FL (6.5-11.5); MONOCYTE# 0.6 X10e3 (0-1.0); MONOCYTE% 4.8 % (3.0-12.0); NEUTROPHIL# 11.3 X10e3 (1.5-7.1); NEUTROPHIL% 91.3 % (40-75); PLATELET COUNT 230 X10e3 (140-420); RED BLOOD COUNT 3.76 X10e (3.90-5.30); RED CELL DISTRIBUTION WIDTH 13.3 % (11.0-15.5); WHITE BLOOD COUNT 12.4 X10e3 (4.0-10.5)
[2017-02-28 05:53] LABS: DIFF IND NO
[2017-02-28 06:55] LABS: BUN/CREATININE RATIO 21.11; CALCIUM SERUM 9.2 mg/dL (8.4-10.2); CREATININE SERUM 0.9 mg/dL (0.6-1.4); GLOM FILT RATE Estimated 66.7 mL/min (>60); POTASSIUM 4.4 mmol/L (3.5-5.1)
[2017-03-02 05:30] LABS: BASOPHIL% 0.2 % (0-2.5); EOSINOPHIL# 0.1 X10e3 (0-0.7); EOSINOPHIL% 0.4 % (0.0-7.0); HEMATOCRIT 35.6 % (35.0-45.0); HEMOGLOBIN 11.7 gm/dL (12.0-16.0); LYMPHOCYTE# 0.9 X10e3 (1.0-3.5); LYMPHOCYTE% 7.5 % (17.0-45.0); MEAN CELL VOLUME 95.5 FL (83-96); MEAN CORPUSCULAR HEMOGLOBIN 31.3 PG (28-34); MEAN CORPUSCULAR HGB CONC 32.8 g/dL (30-36); MEAN PLATELET VOLUME 9.1 FL (6.5-11.5); MONOCYTE# 0.8 X10e3 (0-1.0); MONOCYTE% 6.2 % (3.0-12.0); NEUTROPHIL# 10.5 X10e3 (1.5-7.1); NEUTROPHIL% 85.7 % (40-75); PLATELET COUNT 232 X10e3 (140-420); RED BLOOD COUNT 3.73 X10e (3.90-5.30); RED CELL DISTRIBUTION WIDTH 13.6 % (11.0-15.5); WHITE BLOOD COUNT 12.2 X10e3 (4.0-10.5)
[2017-03-02 05:53] LABS: DIFF IND NO
[2017-03-02 05:55] LABS: BUN/CREATININE RATIO 22.85; CALCIUM SERUM 8.8 mg/dL (8.4-10.2); CREATININE SERUM 0.7 mg/dL (0.6-1.4); GLOM FILT RATE Estimated 90.3 mL/min (>60); POTASSIUM 3.7 mmol/L (3.5-5.1)
[2017-03-02 07:11] LABS: AMYLASE 25 U/L (0-46); LIPASE 23 U/L (22-51)
[2017-03-04 02:21] LABS: CK TOTAL 45 IU/L (26-140)
[2017-03-04 02:39] LABS: BUN/CREATININE RATIO 18.75; CALCIUM SERUM 8.4 mg/dL (8.4-10.2); CREATININE SERUM 0.8 mg/dL (0.6-1.4); GLOM FILT RATE Estimated 76.9 mL/min (>60); POTASSIUM 3.7 mmol/L (3.5-5.1)
[2017-03-04 08:37] LABS: CK TOTAL 39 IU/L (26-140)
[2017-03-04 14:53] LABS: CK TOTAL 26 IU/L (26-140)
[2017-03-05 05:16] LABS: BASOPHIL% 0.4 % (0-2.5); EOSINOPHIL# 0.8 X10e3 (0-0.7); EOSINOPHIL% 6.5 % (0.0-7.0); HEMATOCRIT 34.8 % (35.0-45.0); HEMOGLOBIN 11.2 gm/dL (12.0-16.0); LYMPHOCYTE% 8.2 % (17.0-45.0); MEAN CELL VOLUME 96.3 FL (83-96); MEAN CORPUSCULAR HEMOGLOBIN 31.1 PG (28-34); MEAN CORPUSCULAR HGB CONC 32.3 g/dL (30-36); MEAN PLATELET VOLUME 9.3 FL (6.5-11.5); MONOCYTE# 0.9 X10e3 (0-1.0); MONOCYTE% 7.1 % (3.0-12.0); NEUTROPHIL# 9.5 X10e3 (1.5-7.1); NEUTROPHIL% 77.8 % (40-75); PLATELET COUNT 224 X10e3 (140-420); RED BLOOD COUNT 3.61 X10e (3.90-5.30); RED CELL DISTRIBUTION WIDTH 13.3 % (11.0-15.5); WHITE BLOOD COUNT 12.2 X10e3 (4.0-10.5)
[2017-03-05 05:21] LABS: DIFF IND NO
[2017-03-05 05:55] LABS: BUN/CREATININE RATIO 22.85; CALCIUM SERUM 8.3 mg/dL (8.4-10.2); CREATININE SERUM 0.7 mg/dL (0.6-1.4); GLOM FILT RATE Estimated 90.3 mL/min (>60); MAGNESIUM 1.7 mg/dL (1.6-3.0); POTASSIUM 3.6 mmol/L (3.5-5.1)
[2017-03-06 04:59] LABS: BUN/CREATININE RATIO 21.66; CALCIUM SERUM 8.3 mg/dL (8.4-10.2); CREATININE SERUM 0.6 mg/dL (0.6-1.4); POTASSIUM 3.4 mmol/L (3.5-5.1)
[2017-03-07 06:36] LABS: ALBUMIN SERUM 2.4 g/dL (3.5-5.0); BILIRUBIN, DIRECT 0.1 mg/dL (0.0-0.2); BILIRUBIN,INDIRECT 0.2 mg/dL (0.0-0.9); BILIRUBIN,TOTAL 0.3 mg/dL (0.2-2.0); BUN/CREATININE RATIO 12.85; CALCIUM SERUM 8.2 mg/dL (8.4-10.2); CREATININE SERUM 0.7 mg/dL (0.6-1.4); GLOM FILT RATE Estimated 90.3 mL/min (>60); MAGNESIUM 1.5 mg/dL (1.6-3.0); PHOSPHOROUS 1.9 mg/dL (2.5-4.6); POTASSIUM 3.3 mmol/L (3.5-5.1); PROTEIN TOTAL SERUM 5.8 g/dL (6.0-8.3)
[2017-03-08 09:01] LABS: HEMATOCRIT 32.5 % (35.0-45.0); HEMOGLOBIN 10.8 gm/dL (12.0-16.0); MEAN CELL VOLUME 95.2 FL (83-96); MEAN CORPUSCULAR HEMOGLOBIN 31.7 PG (28-34); MEAN CORPUSCULAR HGB CONC 33.3 g/dL (30-36); MEAN PLATELET VOLUME 9.1 FL (6.5-11.5); RED BLOOD COUNT 3.42 X10e (3.90-5.30); RED CELL DISTRIBUTION WIDTH 13.1 % (11.0-15.5); WHITE BLOOD COUNT 8.2 X10e3 (4.0-10.5)
[2017-03-08 09:34] LABS: BUN/CREATININE RATIO 7.14; CREATININE SERUM 0.7 mg/dL (0.6-1.4); GLOM FILT RATE Estimated 90.3 mL/min (>60); MAGNESIUM 1.3 mg/dL (1.6-3.0); PHOSPHOROUS 2.2 mg/dL (2.5-4.6); POTASSIUM 3.3 mmol/L (3.5-5.1)
[2017-03-09 08:26] LABS: BUN/CREATININE RATIO 11.66; CALCIUM SERUM 8.4 mg/dL (8.4-10.2); CREATININE SERUM 0.6 mg/dL (0.6-1.4); MAGNESIUM 1.5 mg/dL (1.6-3.0); POTASSIUM 3.6 mmol/L (3.5-5.1)
[2017-03-10 09:06] LABS: CALCIUM SERUM 8.8 mg/dL (8.4-10.2); CREATININE SERUM 0.7 mg/dL (0.6-1.4); GLOM FILT RATE Estimated 90.3 mL/min (>60); MAGNESIUM 1.6 mg/dL (1.6-3.0); POTASSIUM 3.7 mmol/L (3.5-5.1)
== END 2017-03-11 17:48 | DRG 682 ==
LOC: CED 19:18 → CEDOF 23:50 → CICCU3 02-26 02:41 → CICCU2 03-03 20:08 → C3A PCU 03-07 14:45
PROVIDERS: Emergency Medicine; Internal Medicine; Internal Medicine Gastroenterology
PROC: 5A09457 Assistance with Respiratory Ventilation, 24-96 Consecutive Hours, Continuous Positive Airway Pressure (ICD-10-PCS; 2017-02-26)
PROC: 02HV33Z Insertion of Infusion Device into Superior Vena Cava, Percutaneous Approach (ICD-10-PCS; 2017-02-28)
PROC: 0DJ08ZZ Inspection of Upper Intestinal Tract, Via Natural or Artificial Opening Endoscopic (ICD-10-PCS; principal; 2017-03-03 17:30)
PROC: B32TYZZ Computerized Tomography (CT Scan) of Left Pulmonary Artery using Other Contrast (ICD-10-PCS; 2017-03-04)
PROC: B32SYZZ Computerized Tomography (CT Scan) of Right Pulmonary Artery using Other Contrast (ICD-10-PCS; 2017-03-04)
PROC: B24BYZZ Ultrasonography of Heart with Aorta using Other Contrast (ICD-10-PCS; 2017-03-04)
DX: N17.9 Acute kidney failure, unspecified (principal); G92 Toxic encephalopathy; J96.21 Acute and chronic respiratory failure with hypoxia; E43 Unspecified severe protein-calorie malnutrition; I50.33 Acute on chronic diastolic (congestive) heart failure; E87.4 Mixed disorder of acid-base balance; K22.10 Ulcer of esophagus without bleeding; B37.0 Candidal stomatitis; E86.0 Dehydration; J96.22 Acute and chronic respiratory failure with hypercapnia; N39.0 Urinary tract infection, site not specified; J98.11 Atelectasis; Z68.43 Body mass index [BMI] 50.0-59.9, adult; E11.649 Type 2 diabetes mellitus with hypoglycemia without coma; Z79.84 Long term (current) use of oral hypoglycemic drugs; E11.42 Type 2 diabetes mellitus with diabetic polyneuropathy; E78.5 Hyperlipidemia, unspecified; F32.9 Major depressive disorder, single episode, unspecified; I89.0 Lymphedema, not elsewhere classified; Z98.51 Tubal ligation status; Z90.49 Acquired absence of other specified parts of digestive tract; Z88.2 Allergy status to sulfonamides; M54.5 Low back pain; G89.29 Other chronic pain; E66.01 Morbid (severe) obesity due to excess calories; G25.3 Myoclonus; Z79.4 Long term (current) use of insulin; K22.9 Disease of esophagus, unspecified; G47.33 Obstructive sleep apnea (adult) (pediatric); M62.3 Immobility syndrome (paraplegic)
CPT/HCPCS: 36415; 36600; 51701; 70450; 71010; 71275; 74176; 76770; 80048; 80053; 80076; 81003; 82140; 82150; 82308; 82550; 82553; 82803; 82947; 83036; 83605; 83690; 83735; 83880; 84100; 84132; 84439; 84443; 84484; 85025; 85027; 85610; 85730; 87040; 87086; 87493; 93005; 93306; 93970; 94640; 94660; 94760; 94761; 95816; 97110; 97163; 97167; 97530; 97535; 99285; C9113; G8978-GP; G8979-GP; G8987-GO; G8988-GO; J0360; J0696; J1650; J1815; J1940; J1953; J2250; J2310; J2405; J3475; J3490; Q9967

== ENCOUNTER 2017-05-28 13:45 | Inpatient (IN) | payer MEDICARE, OTHER ==
--- NOTE | ~2017-05-28 | CT23 ---
[facility] A Service of [facility] & [facility] RADIOLOGY TEXT RESULTS PATIENT: PIPE CM LOCATION: [facility] 323-01 : 51 UNIT #: [id number] AGE: [address]: Leeann Thomas MD SEX: F ORDER DR: [id number] [facility] [address] [place], [place] [address] [id number] I MR#: [id number] Acc #: [id number] NAME: PIPE MC : 1950 SEX: F STUDY DATE/TIME: 05/29/2017 22:05 UNIT: A U ROOM: 323 STUDY DESCRIPTION: CT Angio Neck Attending Physician: Leeann Thomas M.D. Ordering Physician: Aracely Marcial M.D. Primary Care Physician: Stefan Brambila M.D. MEDICAL IMAGING REPORT This report is preliminary unless electronic signature is present EXAM Head and neck CT angiogram with contrast, 05/29/2017. PROCEDURE Axial contrast-enhanced head and neck CT angiogram with three-dimensional reformats. This CT exam was performed with one or more of the following radiation dose reduction techniques: automatic exposure control, adjustment of mA and/or kV according to patient size, and iterative reconstruction. COMPARISON Head CT, same date. CLINICAL HISTORY Two day history of right facial droop. FINDINGS There is dilatation of the ascending aorta to 4.3 cm, incompletely seen here. There is a normal arch branching pattern without proximal and great vessel stenosis. The vertebral artery origins are not well seen due both to bolus timing and body habitus and motion. Both cervical common carotids are patent. There is plaque in both carotid bifurcations with 0% stenosis in both internal carotids by NASCET criteria. The mid to upper vertebral arteries are widely patent bilaterally. Intracranially, the [place] appears complete with a small left and large right posterior communicating artery. There is symmetric intracranial vascularity in the anterior middle and posterior cerebral runoff, without evidence of intracranial aneurysm or intracranial flow-limiting stenosis. There is no branch vessel occlusion or evidence of any region or zone of hypoperfusion. The dural venous sinuses are normal. [facility] A Service of [facility] & [facility] RADIOLOGY TEXT RESULTS PATIENT: PIPE MC LOCATION: [facility] 323-01 : 52 UNIT #: [id number] AGE: [address]: Leeann Thomas MD SEX: F ORDER DR: The cervical soft tissues are unremarkable. The visualized lung apices are unremarkable. There are spinal degenerative changes and there is some dental and periodontal disease but no acute bony abnormality otherwise. IMPRESSION Essentially negative head and neck CT angiogram. There is dilatation of the ascending aorta to at least 4.3 cm though incompletely seen here. There is plaque at the cervical carotid bifurcations but 0% stenosis in both internal carotids by NASCET criteria. There is no intracranial aneurysm or intracranial flow-limiting stenosis. The great vessel origins and in particular, the vertebral origins are somewhat difficult to assess due to a combination of bolus timing, body habitus and motion, but no definite acute abnormality is seen. Dictated by... Grgeg Duvall M.D. THIS IS AN ELECTRONICALLY VERIFIED REPORT Gregg Duvall M.D. at 06/01/2017 10:55 AM TANO/palmer TD: 05/30/2017 22:01 JOB #: [id number] MEDICAL IMAGING REPORT Page 1 of 1 COPY
--- NOTE | ~2017-05-28 | HP ---
Unit #: [id number] #: [id number] Patient: PIPE MC [id number] [address] [facility]. [place], [place] [address] [id number] I MR#: [id number] NAME: PIPE MC ROOM: 34208 Age: 67 Sex: F Admission Date: 05/28/2017 : 1950 Attending Physician: Andrews Rodríguez M.D. Primary Care Physician: Stefan Brambila M.D. HISTORY AND PHYSICAL CHIEF COMPLAINT Facial droop, left side. HISTORY OF PRESENT ILLNESS The patient is a very pleasant 67-year-old female with a history of multiple medical problems including type 2 diabetes, hypertension, hyperlipidemia, chronic diastolic heart failure who came to the ER today with complaints of left facial droop that she noticed this morning. The patient stated she also was experiencing left facial droop during her last admission here at [facility] in January through February of earlier this year. 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 She denies any weakness in either her upper or lower extremities. Does endorse having a headache, mild in nature, since last week. No vision changes. REVIEW OF SYSTEMS Ten out of 14 systems reviewed and negative unless noted above. PAST MEDICAL HISTORY Significant for: 1. Hypertension. 2. Type 2 diabetes. 3. Chronic diastolic heart failure. 4. Chronic pain. 5. Chronic left lower extremity lymphedema. 6. Hyperlipidemia. 7. Depression. 8. Morbid obesity. PAST SURGICAL HISTORY Significant for: 1. Cholecystectomy. 2. Tonsil and adenoid removal. 3. . 4. Back surgeries. 5. Bilateral tubal ligation. ALLERGIES 1. Dyazide. 2. Sulfa. 3. Hydrochlorothiazide. 4. Triamterene. Unit #: [id number] #: [id number] Patient: PIPE MC MEDICATIONS Currently include: 1. Norvasc 10 mg daily. 2. Lipitor 20 mg h.s. 3. Lasix 40 mg daily. 4. Glipizide 10 mg b.i.d. 5. Hydralazine 25 mg b.i.d. 6. Ibuprofen 400 mg q.6 h. p.r.n. 7. Imodium p.r.n. 8. Gabapentin 100 mg b.i.d. 9. Lantus 35 units subcu daily. 10. Lisinopril 20 mg b.i.d. 11. Lopressor 12.5 mg b.i.d. 12. Metformin 500 mg b.i.d. 13. Morphine 15 mg t.i.d. as needed. 14. Potassium chloride 10 mEq daily. SOCIAL HISTORY The patient is and lives with her . No tobacco or alcohol. FAMILY HISTORY Significant for hypertension, coronary artery disease and type 2 diabetes. PHYSICAL EXAMINATION VITAL SIGNS: Temperature 98.1, heart rate 63, blood pressure 159/59, respiratory rate 14, saturating 93% on room air. GENERAL: The patient appears to be a morbidly obese middle-aged female who is in no acute distress. HEENT: Pupils are equal and reactive to light. Extraocular muscles are intact. Oropharynx appeared to be clear. Mucous membranes were moist. Patient has a notable left-sided facial droop with some drooling, however, patient was able to have spontaneous eye blinking and purposeful movement of the left eye. LUNGS: Clear to auscultation bilaterally. HEART: Regular rate and rhythm. No rubs, gallops, or murmurs appreciated. ABDOMEN: Positive bowel sounds. Soft, nontender, obese. EXTREMITIES: No clubbing or cyanosis was noted. Patient does have significant lymphedema in the left lower extremity with skin changes noted as well. Some slight erythema and increased warmth but no evidence of acute cellulitis. DIAGNOSTIC STUDIES LABORATORY: White count 8.2, hemoglobin 12.6, platelets 207. Basic panel within normal limits. Comprehensive metabolic panel within normal limits with the exception of albumin 3.3 and alkaline phosphatase of 107. IMAGING: Noncontrast head CT shows questionable subacute CVA. CARDIOVASCULAR: EKG with normal sinus rhythm at a rate of [address] changes. ASSESSMENT AND PLAN 1. Questionable cerebrovascular accident. Patient with multiple risk factors including type 2 diabetes, hypertension. MRI of the brain has been ordered along with 2D echo and carotid Dopplers. Neuro has been consulted. Will check a fasting lipid panel in the morning. Have ordered PT, OT, and ST consults as well. 2. Type 2 diabetes. Sliding scale insulin as needed along with Unit #: [id number] #: [id number] Patient: PIPE MC hemoglobin A1c to check in the morning. Continue patient's home dose of Lantus but will hold oral medications of metformin and glipizide. 3. Hypertension. Continue home medications. However, will allow some permissive hypertension for now if patient has had a CVA. 4. Hyperlipidemia. Check fasting lipid panel in the morning. Continue statin. 5. Neuropathy. Continue Neurontin. 6. Chronic lymphedema. Patient is to see specialist as an outpatient. No evidence of acute cellulitis at this time. 7. Chronic diastolic heart failure. Continue home medications. 8. Chronic pain. Will continue home medications as well. CODE STATUS FULL CODE. DISPOSITION I expect disposition in under 48 hours. Dictated by Andrews Rodríguez M.D. SUBHASH/sejal TD: 05/28/2017 18:32 JOB #: [id number] HISTORY AND PHYSICAL Page 1 of 1 X X HISTORY AND PHYSICAL
--- NOTE | ~2017-05-28 | CO ---
Unit #: [id number] #: [id number] Patient: PIPE MC [id number] [facility] [address] [facility]. [place], [place] [address] [id number] MR#: [id number] NAME: PIPE MC ROOM: 323 Age: 67 Sex: F Admission Date: 05/28/2017 : 1950 Attending Physician: Leeann Thomas M.D. Primary Care Physician: Stefan Brambila M.D. Consultation Date: 05/29/2017 CONSULTATION REPORT PRIMARY CARE PHYSICIAN Stefan Brambila M.D. REASON FOR CONSULTATION Facial droop on the left side. PATIENT IDENTIFICATION This is a 67-year-old right-handed, white female, who was evaluated in room 323 at [facility]. SOURCE OF INFORMATION The patient and very detailed evaluation done by Dr. Rodríguez. PROBLEM LIST 1. Morbid obesity. 2. Hypertension. 3. Type 2 diabetes mellitus. 4. Chronic diastolic heart failure. 5. Chronic pain syndrome. 6. Chronic left lower extremity lymphedema. 7. Hyperlipidemia. 8. Depression. 9. Status post cholecystectomy. 10. Tonsil and adenoid removal. 11. . 12. Back surgery. 13. Bilateral tubal ligation. 14. Possible Dominguez palsy. It looks like that may have been on the right side and when she was in 6th grade. HISTORY OF PRESENT ILLNESS This is a 67-year-old female with significant medical issues, who presented with some numbness on the face. She states that probably it was the facial droop on the left side and some numbness. All the symptoms are resolved. There was no extremity involvement. She has had chronic lower extremity problem and lymphedema on the left side. She did fine and wants to go home. She told the ER physician as she had mild headaches, but nothing anymore. No new issues. No seizures. No migraines. I do not think she is taking aspirin these days. Her blood pressure at worst was 181 systolic and 81 diastolic. She was afebrile. Her last head CT showed some atrophy and chronic periventricular type Unit #: [id number] #: [id number] Patient: PIPE MC small vessel type changes. She denies any weakness whatsoever. She denies any speech, swallowing or breathing problem. PAST MEDICAL HISTORY As discussed above. PAST SURGICAL HISTORY As discussed above. ALLERGIES Dyazide, sulfa, hydrochlorothiazide, triamterene. HOME MEDICATIONS Norvasc 10 mg daily, Lipitor 20 mg q.h.s., Lasix 40 mg daily, glipizide 10 mg b.i.d., hydralazine 25 mg b.i.d., ibuprofen 400 mg q.6 hours p.r.n., Imodium p.r.n., gabapentin 100 mg b.i.d., Lantus 35 units subcutaneously daily, lisinopril 20 mg b.i.d., Lopressor 12.5 mg b.i.d., metformin 500 mg b.i.d., morphine 15 mg t.i.d. as needed, potassium chloride 10 mEq. FAMILY HISTORY Hypertension, coronary artery disease, and type 2 diabetes mellitus. SOCIAL HISTORY The patient currently lives with her . No tobacco, alcohol, or drug use. She states that she uses a walker and she walks rarely from bedroom to the living room, now she says that she is at the stage where she needs a wheelchair. REVIEW OF SYSTEMS CONSTITUTIONAL: Mostly as discussed in history of present illness. The patient denies any sleep issues, fever, chills, rigor, or sweats. She denies any weight issues, but she has morbid obesity. BMI of 54. She says that she has lost 90 pounds. Denies any headaches, double vision, earache, runny nose, or sore throat. She reported numbness. She did not tell me it looks like she had right peripheral 7th nerve involvement features and she reported Dominguez palsy when she was in 6th grade. NECK: No neck problems. CARDIOVASCULAR: No chest pain, clubbing, cyanosis, orthopnea, or palpitation. PULMONARY: No shortness of air, cough, or expectoration. GI: No nausea, vomiting, diarrhea, or constipation. GENITOURINARY: No genitourinary symptoms. EXTREMITIES: No extremity problems. BACK: She has chronic back pain. PSYCHIATRIC: No psychotic issue. NEUROLOGIC: As discussed. She is diabetic. She has lymphedema. No other hematologic, dermatological, or endocrine issues. PHYSICAL EXAMINATION VITAL SIGNS: Temperature 98.1, pulse 81, respirations 22, blood pressure 176/60, O2 sats were 93% to 98%. Weight of 299 pounds. BMI was 54. NEUROLOGIC: The patient is awake. She is alert. She is oriented. She can name. She can follow commands. No right or left confusion. No finger agnosia. Cranial nerve examination demonstrates full beatty of vision to confrontation. Eye movements are conjugate. I did not see any ptosis. I Unit #: [id number] #: [id number] Patient: PIPE MC did not see any nystagmus. Extraocular movements are intact. Sensation on the face and scalp are normal. Strength of muscles of facial expression normal. Hearing seemed to be intact bilaterally. Tongue was midline. Uvula was midline. Palate elevation were not seen. Head turning was spontaneous. Motor examination demonstrated normal bulk, tone. Strength was essentially 5- in the upper extremities. On lower extremities, it is either giveaway weakness, but she is at best 3. Sensory examination intact for soft touch and pain sensation. No extinction was seen. Romberg was not evaluated. I could not get any reflexes. Toes are mute. Coordination in upper extremity is unremarkable. She could not do much in lower extremities. Gait examination was deferred. DIAGNOSTIC STUDIES IMAGING STUDIES: Reviewed personally. LABORATORY RESULTS: Random glucose was 110. Chemistry profile looked okay. Albumin is 3.3. Hemoglobin A1c previously with 7.2 on 02/26/2017, LDL is 62 and cholesterol was 108. White count is 8.2, H and H of 12.6 and 38.6. IMPRESSION Very nonspecific left facial weakness or numbness, again very nonspecific, but I agree with Dr. Rodríguez that she knows all the risk factors. I do want to start her on aspirin or Plavix. Plan to continue Lipitor, continue managing before the medical condition. I will do a CTA on her and echo and if they are okay, I will observe and she may need rehab more than anything else. She may need placement. I am not really convinced that there was a major TIA, but because of her risks, we will continue the risk factor modification. Also I have talked to her and her family and then physical therapist. She wanted an MRI and at present, she is not really showing significant signs, so I will recommend to do outpatient open MRI and treat as indicated. Follow up with Neurology. Call me for any other questions, issues or concerns. Dictated by... Barrie Vincent/dalila TD: 05/30/2017 07:37 JOB #: [id number] Unit #: [id number] #: [id number] Patient: PIPE MC CONSULTATION REPORT Page 1 of 1 X Oneyda Hernandez MD X CONSULTATION REPORT
--- NOTE | ~2017-05-28 | EKG ---
PATIENT: PIPE MC UNIT #: [id number] Ventricular Rate: 68 BPM Atrial Rate: 68 BPM P-R Interval: 182 ms QRS Duration: 82 ms Q-T Interval: 452 ms QTC Calculation(Bezet): 480 ms P [place]: 50 degrees Calculated R [place]: 16 degrees Calculated T [place]: 11 degrees Diagnosis Line: Normal sinus rhythm with sinus arrhythmia Diagnosis Line: Normal ECG Diagnosis Line: When compared with ECG of 04-MAR-2017 00:57, Diagnosis Line: No significant change was found Diagnosis Line: Confirmed by YUKI ROGERS MD ([id number]) on 05/28/2017 Diagnosis Line: 8:43:05 PM INTERPRETING MD: SUE RAMIREZ
--- NOTE | ~2017-05-28 | CT71 ---
[facility] A Service of [facility] RADIOLOGY TEXT RESULTS PATIENT: PIPE MC LOCATION: [facility] 323- : 51 UNIT #: [id number] AGE: [address]: Aracely Marcial MD SEX: F ORDER DR: [id number] [facility]. [place], [place] [address] [id number] I MR#: [id number] Acc #: [id number] NAME: PIPE MC : 1950 SEX: F STUDY DATE/TIME: 05/28/2017 15:31 UNIT: [address] ROOM: [facility] STUDY DESCRIPTION: CT Head Wo Contrast Attending Physician: Andrews Rodríguez M.D. Ordering Physician: Mike Tena M.D. Primary Care Physician: Stefan Brambila M.D. MEDICAL IMAGING REPORT This report is preliminary unless electronic signature is present EXAM CT of the head without contrast INDICATIONS Right-sided facial weakness since May 27, 2017. TECHNIQUE Axial CT images were obtained from the vertex of the skull through skull base. No intravenous contrast material was administered. This CT exam was performed with one or more of the following radiation dose reduction techniques: Automatic exposure control, adjustment of mA and/or kV according to patient size, and iterative reconstruction. FINDINGS No acute intracranial hemorrhage is identified. No focal areas of decreased attenuation are identified. There is no midline shift or mass effect. There is some atherosclerotic involvement of the cavernous carotid arteries. Visualized paranasal sinuses and mastoid air cells appear clear and there are no focal soft tissue abnormalities. IMPRESSION No acute intracranial process identified. Specifically, there is no evidence of acute hemorrhage, mass lesion or acute infarct. If symptoms persist, further evaluation with MRI is recommended. Dictated by... Disha Velasco M.D. THIS IS AN ELECTRONICALLY VERIFIED REPORT Disha Velasco M.D. at 05/29/2017 2:49 PM AFF/psc [facility] A Service of [facility] RADIOLOGY TEXT RESULTS PATIENT: PIPE MC LOCATION: [facility] 323-01 : [birth year] UNIT #: [id number] AGE: [address]: Aracely Marcial MD SEX: F ORDER DR: TD: 05/28/2017 22:39 JOB #: [id number] MEDICAL IMAGING REPORT Page 1 of 1 COPY
--- NOTE | ~2017-05-28 | CT17 ---
[facility] A Service of [facility] & [facility] RADIOLOGY TEXT RESULTS PATIENT: PIPE MC LOCATION: [facility] 323- : 51 UNIT #: [id number] AGE: [address]: Leeann Thomas MD SEX: F ORDER DR: [id number] [facility] [address] [facility]. [place], [place] [address] [id number] I MR#: [id number] Acc #: [id number] NAME: PIPE MC : 1950 SEX: F STUDY DATE/TIME: 05/29/2017 22:05 UNIT: [address] ROOM: [facility] STUDY DESCRIPTION: CT Angio Head Attending Physician: Leeann Thomas M.D. Ordering Physician: Aracely Marcial M.D. Primary Care Physician: Stefan Brambila M.D. MEDICAL IMAGING REPORT This report is preliminary unless electronic signature is present EXAM Head CT angiogram with contrast, 05/29/2017. PROCEDURE Axial contrast-enhanced head and neck CT angiogram with three-dimensional reformats. This CT exam was performed with one or more of the following radiation dose reduction techniques: automatic exposure control, adjustment of mA and/or kV according to patient size, and iterative reconstruction. COMPARISON Head CT, same date. CLINICAL HISTORY Two day history of right facial droop. FINDINGS Please see CTA neck performed 05/29/2017 for results. Dictated by... Gregg Duvall M.D. THIS IS AN ELECTRONICALLY VERIFIED REPORT Gregg Duvall M.D. at 06/01/2017 10:55 AM TANO/palmer TD: 05/30/2017 22:05 JOB #: [id number] MEDICAL IMAGING REPORT Page 1 of 1 COPY
--- NOTE | ~2017-05-28 | BMI ---
[facility] Nutrition Therapy DATE: 05/29/17 Patient: PIPE MONTESINOSJOCYRadha Physician: TREMAINE Address: [address] [place] [address] Room/Bed: [address] [place] [address], Zip: [place] [address] Admit Date: 05/28/17 Date of : [birth year] Height: 5 2 Weight: 299 136 HIGH BMI NOTE: ANTHROPOMETRICS: HT: 62" WT: 136 KG BMI: 54.8 DIET: HEART HEALTHY/ CONSISTENT CARBOHYDRATE RECOMMENDATIONS: 1. CONTINUE CURRENT DIET IN ORDER TO PROMOTE GRADUAL WEIGHT LOSS TOWARDS A HEALTHY BMI RANGE. Respectfully, NIKITA JARAMILLO RD, LD [facility] cc: client file
--- NOTE | ~2017-05-28 | DS ---
Unit #: [id number] #: [id number] Patient: PIPE MC [id number] [address] [place], [place] [address] [id number] I MR#: [id number] NAME: PIPE MC ROOM: 323 Age: 67 Sex: F Admission Date: 05/28/2017 : 1950 Discharge Date: 05/30/2017 Attending Physician: Leeann Thomas M.D. Primary Care Physician: Stefan Brambila M.D. DISCHARGE SUMMARY REASON FOR ADMISSION Facial droop left side. HISTORY OF PRESENT ILLNESS/HOSPITAL COURSE Patient is a very pleasant, 67-year-old female with a prior history of type 2 diabetes, hypertension, hyperlipidemia, chronic diastolic heart failure, chronic pain syndrome, who presents secondary to left facial droop. Please see H and P for complete details. Consultation was placed to neurology services. Patient was placed on stroke protocol. Appropriate laboratory studies were done. LDL came back at 62, HDL at 32. Patient underwent CT head noncontrast, did not show any acute process. Hemoglobin A1C known to be 6.8%. Ultrasound of carotids bilaterally did reveal 50% to 69% right internal carotid stenosis which was noted. CTA head and neck currently pending. Once those results come back and after Neurology sees and evaluates patient and makes their final recommendations, she appears clinically stable for discharge. PT and OT services have already evaluated patient. She has no residual deficits. She has no facial droop at the present time. Results of her carotid ultrasound have been discussed with patient. She should follow up with her primary care physician at time of discharge for outpatient vascular surgery evaluation. She will be reverted back to her home medications at time of discharge with any additional changes as per Dr. Hernandez of neurology services. FINAL DISCHARGE DIAGNOSES 1. Facial droop/probable transient ischemic attack with currently no residual deficits. 2. Type 2 diabetes. 3. Hypertension. 4. Hyperlipidemia. 5. Chronic diastolic heart failure. 6. Chronic pain syndrome. 7. Chronic lower extremity lymphedema. 8. Depression. Unit #: [id number] #: [id number] Patient: PIPE MC 9. Severe morbid obesity. FINAL DISCHARGE MEDICATIONS 1. Neurontin 100 mg p.o. b.i.d. 2. Prozac 40 mg p.o. daily. 3. Glucophage 500 mg p.o. b.i.d. 4. Loperamide 2 mg p.o. daily p.r.n. 5. Benadryl 25 mg p.o. q.6 h. p.r.n. 6. Norvasc 10 mg p.o. daily. 7. Lopressor 12.5 mg p.o. b.i.d. 8. Lasix 40 mg p.o. daily. 9. Lipitor 20 mg p.o. q.h.s. 10. Hydralazine 25 mg p.o. b.i.d. 11. Zestril 20 mg p.o. b.i.d. 12. Lantus 35 units subcu daily. 13. Motrin 400 mg p.o. q.6 h. p.r.n. 14. Morphine sulfate 50 mg p.o. q.8 h. p.r.n. 15. Klor-Con 10 mEq p.o. daily. 16. Glucotrol 10 mg p.o. b.i.d. DISCHARGE CONDITION Stable. DISCHARGE DISPOSITION Home. FOLLOWUP 1. PCP in seven days. 2. Outpatient vascular surgery evaluation is recommended. Dictated by... Barrie Toussaint/temo TD: 06/02/2017 14:53 JOB #: [id number] DISCHARGE SUMMARY Page 1 of 1 X Leeann Thomas MD X DISCHARGE SUMMARY
--- NOTE | ~2017-05-28 | US37 ---
[facility] A Service of [facility] & [facility] RADIOLOGY TEXT RESULTS PATIENT: PIPE MC LOCATION: [facility] 323- : 51 UNIT #: [id number] AGE: [address]: Leeann Thomas MD SEX: F ORDER DR: [id number] [facility] [address] [facility]. [place], [place] [address] [id number] I MR#: [id number] Acc #: [id number] NAME: PIPE MC : 1950 SEX: F STUDY DATE/TIME: 05/29/2017 7:45 UNIT: A PCU ROOM: [facility] STUDY DESCRIPTION: US Carotid W/Doppler Bilateral Attending Physician: Aracely Marcial M.D. Ordering Physician: Er [facility] Primary Care Physician: Stefan Brambila M.D. MEDICAL IMAGING REPORT This report is preliminary unless electronic signature is present EXAM Carotid Doppler 05/29/2017 HISTORY 3-month history of confusion and loss of balance. TECHNIQUE Escamilla-scale imaging, color-Doppler flow imaging and Doppler waveform analysis. FINDINGS On the right, there is antegrade flow in the common, internal and external carotid vertebral arteries. There is no escamilla-scale identifiable plaque. Right internal carotid peak systolic velocity is 194 cm/sec with a brisk systolic upstroke and the right vertebral flows antegrade. On the left, there is some visible escamilla-scale evidence of plaque in the carotid bifurcation. The common, internal and external carotid vertebral artery flow antegrade. Left internal carotid peak systolic velocity is 117 cm/sec with a brisk upstroke and the left vertebral flows antegrade. IMPRESSION 1. 50-69% right internal carotid stenosis by NASCET criteria and less than 50% left internal carotid stenosis by NASCET criteria. 2. Antegrade flow also seen in both common and external carotid and vertebral arteries. Dictated by... Gregg Duvall M.D. THIS IS AN ELECTRONICALLY VERIFIED REPORT Gregg Duvall M.D. at 06/01/2017 10:57 AM [facility] A Service of [facility] & [facility] RADIOLOGY TEXT RESULTS PATIENT: PIPE MC LOCATION: A 323-01 : 51 UNIT #: [id number] AGE: [address]: Leeann Thomas MD SEX: F ORDER DR: Osvaldo TD: 05/29/2017 21:41 JOB #: [id number] MEDICAL IMAGING REPORT Page 1 of 1 COPY
[~2017-05-28 13:45] MED LIST changes: +ADVIL200 M1 PO; +BENADRYL25 M1 PO; +GLUCOTROL PO; +HYDRALAZINE HCL25 MG PO; +IMODIUM2 MG PO; +LASIX20 MG PO; +LIPITOR20 MG PO; +LISINOPRIL20 MG PO; +METFORMIN HCL500 M1 PO; +METOPROLOL TART25 MG PO; +MORPHINE SULFAT15 MG PO; +MORPHINE SULFAT60 MG PO; +POTASSIUM CHLO10 ME1 PO; +SARAFEM20 MG PO
[2017-05-28] MEDS ORDERED: LANTUS100 UNITS/ SUBQ (13:50)
[2017-05-28] MEDS ORDERED: LISINOPRIL20 MG PO (13:51)
[2017-05-28] MEDS ORDERED: METFORMIN HCL500 M2 PO (13:51)
[2017-05-28] MEDS ORDERED: METOPROLOL TAR25 MG PO (13:51)
[2017-05-28] MEDS ORDERED: POTASSIUM CHLO10 ME1 PO (13:52)
[2017-05-28] MEDS ORDERED: MORPHINE SULFAT15 MG PO ×2 (13:52→17:15)
[2017-05-28] MEDS ORDERED: AMLODIPINE BESY10 MG PO (13:52)
[2017-05-28] MEDS ORDERED: BENADRYL25 MG PO (13:53)
[2017-05-28] MEDS ORDERED: SARAFEM20 MG PO ×2 (13:53→17:11)
[2017-05-28] MEDS ORDERED: LIPITOR20 MG PO ×2 (13:53→17:10)
[2017-05-28] MEDS ORDERED: LASIX20 MG PO ×2 (13:54→17:12)
[2017-05-28] MEDS ORDERED: GLUCOTROL PO ×2 (13:54→17:12)
[2017-05-28] MEDS ORDERED: HYDRALAZINE HCL25 MG PO ×2 (13:54→17:12)
[2017-05-28] MEDS ORDERED: IBUPROFEN M200 M1 PO (13:55)
[2017-05-28] MEDS ORDERED: IMODIUM A-D2 M2 PO (13:55)
[2017-05-28] MEDS ORDERED: NEURONTIN100 MG PO ×2 (13:55→17:13)
[2017-05-28 14:48] LABS: BASOPHIL# 0.1 X10e3 (0-0.3); BASOPHIL% 0.8 % (0-2.5); EOSINOPHIL# 0.3 X10e3 (0-0.7); EOSINOPHIL% 3.4 % (0.0-7.0); HEMATOCRIT 38.6 % (35.0-45.0); HEMOGLOBIN 12.6 gm/dL (12.0-16.0); LYMPHOCYTE# 1.8 X10e3 (1.0-3.5); LYMPHOCYTE% 21.5 % (17.0-45.0); MEAN CELL VOLUME 96.3 FL (83-96); MEAN CORPUSCULAR HEMOGLOBIN 31.4 PG (28-34); MEAN CORPUSCULAR HGB CONC 32.6 g/dL (30-36); MEAN PLATELET VOLUME 9.8 FL (6.5-11.5); MONOCYTE# 0.8 X10e3 (0-1.0); MONOCYTE% 9.6 % (3.0-12.0); NEUTROPHIL# 5.3 X10e3 (1.5-7.1); NEUTROPHIL% 64.7 % (40-75); PLATELET COUNT 207 X10e3 (140-420); RED BLOOD COUNT 4.01 X10e (3.90-5.30); WHITE BLOOD COUNT 8.2 X10e3 (4.0-10.5)
[2017-05-28 14:54] LABS: DIFF IND NO
[2017-05-28 15:02] LABS: PARTIAL THROMBOPLASTIN TIME 25.3 SECONDS (23.5-31.3); PROTHROMBIN TIME (PATIENT) 10.9 SECONDS (10.0-11.7)
[2017-05-28 16:02] LABS: ALBUMIN SERUM 3.3 g/dL (3.5-5.0); BILIRUBIN, DIRECT 0.1 mg/dL (0.0-0.2); BILIRUBIN,INDIRECT 0.7 mg/dL (0.0-0.9); BILIRUBIN,TOTAL 0.8 mg/dL (0.2-2.0); BUN/CREATININE RATIO 21.25; CALCIUM SERUM 9.1 mg/dL (8.4-10.2); CREATININE SERUM 0.8 mg/dL (0.6-1.4); GLOM FILT RATE Estimated 76.9 mL/min (>60); POTASSIUM 4.1 mmol/L (3.5-5.1)
[2017-05-28 16:58] LABS: POC - CKMB 1.7 ng/mL (0.0-7.9); POC - TROPONIN <0.05 ng/mL (<=0.05)
[2017-05-28] MEDS ORDERED: NORVASC10 MG PO (17:10)
[2017-05-28] MEDS ORDERED: BENADRYL25 M1 PO (17:11)
[2017-05-28] MEDS ORDERED: IBUPROFEN PO (17:13)
[2017-05-28] MEDS ORDERED: IMODIUM2 MG PO (17:13)
[2017-05-28] MEDS ORDERED: LISINOPRIL PO (17:14)
[2017-05-28] MEDS ORDERED: LANTUS SOL100 UNIT/1 SUBQ (17:14)
[2017-05-28] MEDS ORDERED: METFORMIN PO (17:15)
[2017-05-28] MEDS ORDERED: LOPRESSOR PO (17:15)
[2017-05-28] MEDS ORDERED: KCL PO (17:16)
[2017-05-29 06:56] LABS: CHOLESTEROL 108 mg/dL (0-200); HDL CHOLESTEROL 32 mg/dL (35-95); LDL CHOLESTEROL 62 mg/dL (-130); LDL/HDL RATIO 2 RATIO (0-4); TRIGLYCERIDES 68 mg/dL (10-160)
[2017-05-30 06:43] LABS: CHOLESTEROL 113 mg/dL (0-200); HDL CHOLESTEROL 33 mg/dL (35-95); LDL CHOLESTEROL 65 mg/dL (-130); LDL/HDL RATIO 2 RATIO (0-4); TRIGLYCERIDES 74 mg/dL (10-160)
[2017-05-30] MEDS ORDERED: TYL325 PO ×2 (15:29→15:32)
[2017-05-30] MEDS ORDERED: BAYER ASPIRIN325 M1 PO (15:46)
== END 2017-05-30 16:44 | disposition home health service (06) | DRG 69 ==
LOC: CED 13:45 → CEDOF 16:40 → CED 18:12 → CEDOF 20:22 → C3A PCU 20:22
PROVIDERS: Emergency Medicine; Internal Medicine
PROC: B32GYZZ Computerized Tomography (CT Scan) of Bilateral Vertebral Arteries using Other Contrast (ICD-10-PCS; principal; 2017-05-29)
PROC: B325YZZ Computerized Tomography (CT Scan) of Bilateral Common Carotid Arteries using Other Contrast (ICD-10-PCS; 2017-05-29)
DX: G45.9 Transient cerebral ischemic attack, unspecified (principal); E11.40 Type 2 diabetes mellitus with diabetic neuropathy, unspecified; I11.0 Hypertensive heart disease with heart failure; I50.32 Chronic diastolic (congestive) heart failure; Z68.43 Body mass index [BMI] 50.0-59.9, adult; E44.1 Mild protein-calorie malnutrition; I89.0 Lymphedema, not elsewhere classified; R29.810 Facial weakness; E66.01 Morbid (severe) obesity due to excess calories; E78.5 Hyperlipidemia, unspecified; G89.4 Chronic pain syndrome; Z88.2 Allergy status to sulfonamides; Z88.8 Allergy status to other drugs, medicaments and biological substances; Z79.4 Long term (current) use of insulin; Z83.3 Family history of diabetes mellitus; Z82.49 Family history of ischemic heart disease and other diseases of the circulatory system; Z90.49 Acquired absence of other specified parts of digestive tract
CPT/HCPCS: 36415; 70450; 70496; 70498; 80048; 80061; 80076; 82553; 82947; 83036; 84484; 85025; 85610; 85730; 86140; 92523-GN; 92610; 93005; 93880; 97116; 97162; 97166; 99285; G8978-GP; G8979-GP; G8980-GP; G8987-GO; G8988-GO; G8989-GO; G8996-GN; G8997-GN; G8998-GN; J1815; Q9967